=== PATIENT | male | born 1940 | race Caucasian/White ===

== ENCOUNTER 2022-08-19 14:56 | Inpatient (IN) | payer MEDICARE, OTHER ==
[2022-08-19] MEDS ORDERED: SODIUM CHLORIDE 0.9% 1,000 ML IV STA ×2 (15:08→16:16)
[2022-08-19 15:18] LABS: BASOPHILS % (AUTO) 0.1 %; HCT - HEMATOCRIT 36.7 % (42.0-52.0); HGB - HEMOGLOBIN 12.4 g/dL (14.0-18.0); LYMPHOCYTES # (AUTO) 0.5 10^3/uL (1.5-3.5); LYMPHOCYTES % (AUTO) 3.1 %; MEAN CORPUSCULAR HEMOGLOBIN 32.3 pg (27.0-31.0); MEAN CORPUSCULAR HGB CONC 33.8 g/dL (32.0-36.0); MEAN CORPUSCULAR VOLUME 95.6 fL (80.0-94.0); MEAN PLATELET VOLUME 10.2 fL (7.4-11.4); MONOCYTES # (AUTO) 0.9 10^3/uL (0.0-1.0); NEUTROPHILS # (AUTO) 14.1 10^3/uL (1.5-6.6); NEUTROPHILS % (AUTO) 90.2 %; PLT - PLATELET COUNT 136 10^3/uL (130-450); RED BLOOD COUNT 3.84 10^6/uL (4.70-6.10); RED CELL DISTRIBUTION WIDTH 13.7 % (12.0-15.0); WHITE BLOOD COUNT 15.6 x10^3/uL (4.8-10.8)
--- NOTE | 2022-08-19 15:19 | ED Physician Documentation ---
History of Present Illness - Stated complaint Stated Complaint: FOUND DOWN - Chief complaint Chief Complaint: Neuro - History obtained from History obtained from: Patient, EMS - Additonal information Additional information: Patient is an 82-year-old male who was found down outside his residence Today. He was last seen normal sometime yesterday evening. Per EMS, reportedly a neighbor/Caregiver found him laying out in the yard this morning around 9:00 and put a blanket on him. For unclear reasons they did not seek help at that time but called 911 later this afternoon.They did report that patient has an dementia history although it is not diagnosed and has been known to use alcohol.Patient Was found to be quite cold and hypothermic with blood sugar of 69. They did give an amp of D50 and believed that this helped improve some of his mentation. Patient is not able to yet give a clear history as to what has occurred. He does know his name and where he is.I am not able to locate any records [facility] system And patient has never been here before. Review of Systems Unable to obtain: Confused PD PAST MEDICAL HISTORY - Allergies Allergies/Adverse Reactions: Allergies Allergy/AdvReac Type Severity Reaction Status Date / Time Unable to Assess Allergy Verified 08/19/22 15:41 PD ED PE NORMAL - General General: Other (Disheveled, cachectic, elderly and frail-appearing, alert and oriented to person and place) - HEENT HEENT: Atraumatic, PERRL, EOMI. No: Moist mucous membranes - Neck Neck: Supple, no meningeal sign, No bony TTP - Cardiac Cardiac: RRR, Strong equal pulses - Respiratory Respiratory: No respiratory distress, Clear bilaterally - Abdomen Abdomen: Soft, Non tender, Non distended - Derm Derm: Other (Cold extremities; chillblains) - Extremities Extremities: No deformity, Other - Neuro Neuro: celery stripper 2-12 intact, No motor deficit, Normal speech. No: Alert and oriented X 3 (ANO x2) Results - Vitals Vitals: Oxygen O2 Source Room air - EKG (time done) 1618 Rate: Rate (enter#) (86) Rhythm: NSR Other comments: Other comments (Significant motion artifact) Compare to prior EKG: Old EKG unavailable - Labs Labs: Laboratory Tests 08/19/22 08/19/22 08/19/22 15:02 15:08 15:08 WBC 15.6 H RBC 3.84 L Hgb 12.4 L Hct 36.7 L MCV 95.6 H MCH 32.3 H MCHC 33.8 RDW 13.7 Plt Count 136 MPV 10.2 Neut # (Auto) 14.1 H Lymph # (Auto) 0.5 L Porter # (Auto) 0.9 Eos # (Auto) 0.0 Baso # (Auto) 0.0 Absolute Nucleated RBC 0.00 Nucleated RBC % 0.0 PT 17.1 H INR 1.6 H Sodium Potassium Chloride Carbon Dioxide Anion Gap BUN Creatinine Estimated GFR (MDRD) Glucose POC Whole Bld Glucose 141 H Lactic Acid Calcium Magnesium Total Bilirubin AST ALT Alkaline Phosphatase Total Creatine Kinase Total Protein Albumin Globulin Albumin/Globulin Ratio Lipase Urine Color Urine Clarity Urine pH Ur Specific [place] Urine Protein Urine Glucose (UA) Urine Ketones Urine Occult Blood Urine Nitrite Urine Bilirubin Urine Urobilinogen Ur Leukocyte Esterase Urine RBC Urine WBC Ur Squamous Epith Cells Urine Bacteria Urine Casts Urine Mucus Ur Microscopic Review Urine Culture Comments Urine Opiates Screen Ur Oxycodone Screen Urine Methadone Screen Ur Propoxyphene Screen Ur Barbiturates Screen Ur Tricyclics Screen Ur Phencyclidine Scrn Ur Amphetamine Screen U Methamphetamines Scrn U Benzodiazepines Scrn Urine Cocaine Screen U Cannabinoids Screen Ethyl Alcohol SARS-CoV-2 (PCR) 08/19/22 08/19/22 08/19/22 15:08 15:08 15:36 WBC RBC Hgb Hct MCV MCH MCHC RDW Plt Count MPV Neut # (Auto) Lymph # (Auto) Porter # (Auto) Eos # (Auto) Baso # (Auto) Absolute Nucleated RBC Nucleated RBC % PT INR Sodium 132 L Potassium 4.2 Chloride 97 L Carbon Dioxide 21 Anion Gap 14.0 H BUN 35 H Creatinine 0.7 Estimated GFR (MDRD) 108 Glucose 191 H POC Whole Bld Glucose Lactic Acid 3.0 H* Calcium 8.5 Magnesium 2.7 Total Bilirubin 1.8 H AST 161 H ALT 42 Alkaline Phosphatase 79 Total Creatine Kinase 7051 H* Total Protein 6.7 Albumin 3.5 Globulin 3.2 Albumin/Globulin Ratio 1.1 Lipase 20 L Urine Color Urine Clarity Urine pH Ur Specific [place] Urine Protein Urine Glucose (UA) Urine Ketones Urine Occult Blood Urine Nitrite Urine Bilirubin Urine Urobilinogen Ur Leukocyte Esterase Urine RBC Urine WBC Ur Squamous Epith Cells Urine Bacteria Urine Casts Urine Mucus Ur Microscopic Review Urine Culture Comments Urine Opiates Screen Ur Oxycodone Screen Urine Methadone Screen Ur Propoxyphene Screen Ur Barbiturates Screen Ur Tricyclics Screen Ur Phencyclidine Scrn Ur Amphetamine Screen U Methamphetamines Scrn U Benzodiazepines Scrn Urine Cocaine Screen U Cannabinoids Screen Ethyl Alcohol < 5.0 SARS-CoV-2 (PCR) NOT DETECTED 08/19/22 16:00 WBC RBC Hgb Hct MCV MCH MCHC RDW Plt Count MPV Neut # (Auto) Lymph # (Auto) Porter # (Auto) Eos # (Auto) Baso # (Auto) Absolute Nucleated RBC Nucleated RBC % PT INR Sodium Potassium Chloride Carbon Dioxide Anion Gap BUN Creatinine Estimated GFR (MDRD) Glucose POC Whole Bld Glucose Lactic Acid Calcium Magnesium Total Bilirubin AST ALT Alkaline Phosphatase Total Creatine Kinase Total Protein Albumin Globulin Albumin/Globulin Ratio Lipase Urine Color YELLOW Urine Clarity HAZY Urine pH 5.5 Ur Specific [place] >=1.030 H Urine Protein TRACE Urine Glucose (UA) 100 H Urine Ketones >=80 H Urine Occult Blood LARGE H Urine Nitrite NEGATIVE Urine Bilirubin NEGATIVE Urine Urobilinogen 0.2 (NORMAL) Ur Leukocyte Esterase NEGATIVE Urine RBC 6-10 H Urine WBC 0-3 Ur Squamous Epith Cells NONE SEEN Urine Bacteria Rare Urine Casts 0-2 Hyaline Casts Urine Mucus Moderate Strands Ur Microscopic Review INDICATED Urine Culture Comments NOT INDICATED Urine Opiates Screen NEGATIVE Ur Oxycodone Screen NEGATIVE Urine Methadone Screen NEGATIVE Ur Propoxyphene Screen NEGATIVE Ur Barbiturates Screen NEGATIVE Ur Tricyclics Screen NEGATIVE Ur Phencyclidine Scrn NEGATIVE Ur Amphetamine Screen NEGATIVE U Methamphetamines Scrn NEGATIVE U Benzodiazepines Scrn NEGATIVE Urine Cocaine Screen NEGATIVE U Cannabinoids Screen POSITIVE H Ethyl Alcohol SARS-CoV-2 (PCR) Departure - Departure Disposition: 66 [facility] DC/Xfer Clinical Impression: Hypothermia, Altered mental status Rhabdomyolysis Qualifiers: Rhabdomyolysis type: non-traumatic Qualified Code(s): M62.82 - Rhabdomyolysis Condition: Serious Discharge Date/Time: 08/19/22 18:00
--- NOTE | 2022-08-19 15:28 | XRAY Report ---
PROCEDURE: Chest 1 View X-Ray INDICATIONS: AMS TECHNIQUE: One view of the chest was acquired. COMPARISON: None. FINDINGS: Surgical changes and devices: None. Lungs and pleura: No pleural effusions or pneumothorax. Lungs are clear. Mediastinum: Mediastinal contours appear normal. Heart size is normal. Bones and chest wall: No suspicious bony lesions. Overlying soft tissues appear unremarkable. IMPRESSION: No evidence for active disease in the chest. Reviewed by: Boo Crockett MD on 08/19/2022 3:27 PM PST Approved by: Boo Crockett MD on 08/19/2022 3:27 PM [facility] Station ID: [id number]
[2022-08-19 15:31] LABS: INR 1.6 (0.8-1.2); PT - PROTHROMBIN TIME 17.1 secs (9.9-12.6)
--- NOTE | 2022-08-19 15:33 | CT Report ---
PROCEDURE: HEAD WO INDICATIONS: AMS TECHNIQUE: Noncontrast 4.5 mm thick angled axial sections acquired from the foramen magnum to the vertex. For r adiation dose reduction, the following was used: automated exposure control, adjustment of mA and/or kV according to patient size. COMPARISON: None. FINDINGS: Image quality: Excellent. CSF spaces: Basal cisterns are patent. No extra-axial fluid collections. Ventricles are normal in size and shape. Brain: Encephalomalacia and gliosis in the anterior aspect of the right superior frontal gyrus consis tent with prior infarct. There is also encephalomalacia and gliosis in the inferior left frontal lobe consistent with prior infarct. Mild global cerebral volume loss and moderate chronic microvascular i schemic changes. No acute intracranial hemorrhage. No mass effect or midline shift. No midline shift. Skull and face: Calvarium and visualized facial bones are intact, without suspicious lesions. Sinuses: Visualized sinuses and mastoids are clear. IMPRESSION: No acute intracranial finding. Remote small left and right frontal infarcts. Reviewed by: Merrick De La Rosa MD on 08/19/2022 3:31 PM PST Approved by: Merrick De La Rosa MD on 08/19/2022 3:31 PM PST Station ID: [id number]
--- NOTE | 2022-08-19 15:35 | CT Report ---
PROCEDURE: CERVICAL SPINE WO INDICATIONS: AMS; found down; unknown trauma TECHNIQUE: Noncontrast 3 mm thick sections acquired from the skull base to the T4 level. Sagittal and coronal r eformats were then constructed. For radiation dose reduction, the following was used: automated exp osure control, adjustment of mA and/or kV according to patient size. COMPARISON: None. FINDINGS: Straightening of usual cervical lordosis. No listhesis. Vertebral body heights are maintained. No fra cture, subluxation, or dislocation. Advanced degenerative changes at each level in the cervical spine . Regional soft tissues demonstrate no acute abnormality. IMPRESSION: No CT evidence of acute traumatic cervical spine injury. Reviewed by: Merrick De La Rosa MD on 08/19/2022 3:33 PM PST Approved by: Merrick De La Rosa MD on 08/19/2022 3:33 PM PST Station ID: [id number]
[2022-08-19 16:02] LABS: ALBUMIN 3.5 g/dL (3.2-5.5); ALBUMIN/GLOBULIN RATIO 1.1 (1.0-2.2); ALKALINE PHOSPHATASE 79 IU/L (42-121); ALT ALANINE AMINOTRANSFERASE 42 IU/L (10-60); AST ASPARTATE AMINOTRANSFERASE 161 IU/L (10-42); BILIRUBIN,TOTAL 1.8 mg/dL (0.2-1.0); BUN - BLOOD UREA NITROGEN 35 mg/dL (6-20); CALCIUM 8.5 mg/dL (8.5-10.3); CARBON DIOXIDE - CO2 21 mmol/L (21-32); CHLORIDE 97 mmol/L (101-111); CREATININE 0.7 mg/dL (0.6-1.2); ETOH - ETHANOL < 5.0 mg/dL; GFR - MDRD 108 (>89); GLUCOSE 191 mg/dL (70-100); LIPASE 20 U/L (22-51); MAGNESIUM 2.7 mg/dL (1.7-2.8); POTASSIUM 4.2 mmol/L (3.5-5.0); SODIUM 132 mmol/L (135-145); TOTAL PROTEIN 6.7 g/dL (6.7-8.2)
[2022-08-19 16:03] LABS: CK- CREATINE KINASE 7051 IU/L (22-269)
[2022-08-19 16:12] LABS: MUDS CUTOFF CONCENTRATIONS CUTOFF CONC BELOW:
[2022-08-19 16:17] LABS: BILIRUBIN,URINE NEGATIVE (NEGATIVE); GLUCOSE, URINE (UA) 100 mg/dL (NEGATIVE); KETONES,URINE (UA) >=80 mg/dL (NEGATIVE); LEUKOCYTE ESTERASE, URINE NEGATIVE (NEGATIVE); NITRITE,URINE NEGATIVE (NEGATIVE); OCCULT BLOOD,URINE LARGE (NEGATIVE); PH,URINE 5.5 PH (5.0-7.5); PROTEIN,URINE TRACE mg/dL (NEGATIVE); UROBILINOGEN,URINE 0.2 (NORMAL) E.U./dL (NORMAL)
[2022-08-19 16:19] LABS: CLARITY,URINE HAZY (CLEAR)
[2022-08-19 16:32] LABS: WBC,URINE 0-3 /HPF (0-3)
[2022-08-19 16:33] LABS: AMPHETAMINE SCREEN,URINE NEGATIVE (NEGATIVE); BACTERIA,URINE Rare /HPF (None Seen); BARBITURATE SCREEN,UR NEGATIVE (NEGATIVE); BENZODIAZEPINES SCREEN, URINE NEGATIVE (NEGATIVE); CASTS, URINE 0-2 Hyaline Casts /LPF; COCAINE SCREEN URINE NEGATIVE (NEGATIVE); METHADONE SCREEN, URINE NEGATIVE (NEGATIVE); METHAMPHETAMINES SCREEN, URINE NEGATIVE (NEGATIVE); MUCUS,URINE Moderate Strands; OPIATE SCREEN, URINE NEGATIVE (NEGATIVE); OXYCODONE SCREEN, URINE NEGATIVE (NEGATIVE); PROPOXYPHENE SCREEN, URINE NEGATIVE (NEGATIVE); SQUAMOUS EPITHELIAL CELL,UR NONE SEEN (<= Few); THC CANNABINOID SCREEN, URINE POSITIVE (NEGATIVE); TRICYCLIC ANTIDEPRESSANT,URINE NEGATIVE (NEGATIVE)
[2022-08-19] MEDS ORDERED: ONDANSETRON ODT 4 MG TABLET TL PRN (16:52)
[2022-08-19] MEDS ORDERED: ONDANSETRON 4 MG/2 ML VIAL IVP PRN (16:52)
[2022-08-19] MEDS ORDERED: ACETAMINOPHEN 325 MG TABLET PO PRN (16:52)
[2022-08-19] MEDS ORDERED: oxyCODONE 5 MG TABLET PO PRN (16:52)
[2022-08-19] MEDS ORDERED: LACTATED RINGERS 1,000 ML IV SCH (17:00)
--- NOTE | 2022-08-19 18:38 | HISTORY & PHYSICAL EXAMINATION ---
History and Physical - History and Physical August 19, 2022 6:38 PM Chief complaint: found down and now hypothermic History obtained from cousin and cousin's Admitted from home via EMS History of present illness: He is an 82-year-old white male who lives a chosen lifestyle of roughing it. He has limited income from Social Security and has chosen to live in a small cabin on a friend's property where there is electricity and heat but no running water in the house. If he wants to take a bath, and "peel it off after a year" he will run a spigot out in the yard. He is done well with this lifestyle because he likes to spend time outdoors, fishing, hunting, and hanging out with his cousin. He likes to smoke tobacco and weed and drink beers with his cousin. In the last couple of years, his cousin is noted that the patient is getting a little bit more forgetful and repetitive but still able to take care of himself. Judgment was still sound. He has been taking more "headers" because of loss of balance and will fall. The cousin sees the patient 2 or 3 times a week. He is always been a skinny kraig, has a poor diet, and that has not changed. The family has been starting get a little bit worried about what they were going to do about confronting him. They recognize that he is getting older, probably not a good idea to be living where he is living but nobody had any solutions to how to fix this problem. The patient's own brother is 3 years younger and has the same lifestyle and lives up in [place]. Today, the story is obtained from the cousin. He states that the landlord/friend saw him this morning. What was weird is that he was wearing shorts and that was it. His landlord/friend said "hey man, get some clothes on" and handed him a shirt and a jacket. At that time the patient was conversant b ut a little bit vague. A little bit more out of it than usual. However he did respond to his cat, stroked the cat, spoke to the cat like he normally does. They told him to get inside. And his landlord/friend went to work. Around 2 in the afternoon they came back from work and found the patient still in the same spot he was left at this morning, only this time he was laying on the ground. He may have been on the ground this entire day. That is when they called ambulance. In triage his temperature was 33.3 rectally. Blood pressure 129/105. Respirations 30. He weighed 38.55 kg and is estimated to be 5 foot 6 inches tall. He is a disheveled, bearded gentleman. Bruises and abrasions on his body. Chilblains of hands and feet. Toenails curved and long by about 2 inches. Tachypneic, but clear lungs, and a regular rate and rhythm. Nonverbal. Sodium was 132. BUN 35. Glucose 191. Lactic acid 3. Total bili 1.8. CK 7051. White cell count is 15.6. Hemoglobin 12.4. Platelets 136. INR 1.6. Urinalysis has occult blood, ketonuria, glucosuria, red cells, a small amount of white cells and 0-3. Negative leukocyte Estrace. Negative nitrates. Toxicology screen positive for cannabinoids. Ethyl alcohol less than 5. COVID- negative. Chest x-ray was without active disease. Head CT had no acute intracranial findings. He had remote small left and right frontal infarcts. C- spine CT was without acute evidence of traumatic cervical injury. I am now being asked to admit this patient for hypothermia, encephalopathy, and probable rhabdomyolysis. Past medical history: According to the cousin this patient has never been hospitalized before. He has not had any major surgeries or fractures. He has not been seen by In over 30 years. No known drug allergies No medications listed Social history: [place] in the [employer] for about 3 years. Honorable discharge. Never . Never had children. 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 Again chose to live in a cabin, and live a simple life with so security. It was a conscious choice. He liked his fishing, hunting, and hanging out with his family. He does not have a history of heroin, cocaine, LSD according to the cousin. He has been a smoker all of his life. Probably 1 to 2 packs a day. He does like to use cannabis. Beer is up to 3 to 4 cans right now. In the past he is drank more. Family history.: Did not know much about his father because his father abandoned him when the patient was 16. Mom in her 80s of a heart attack. He has a brother who lives up in [place] and as far as they know he does not have any medical issues. He has no children. Previous level of function: Does not drive. Very simple bill paying. Basically pays his landlord. Landlord brings him over food at night. But able to dress himself and feed himself up until this point. Hygiene has been poor. Review of systems unobtainable at this time. CODE STATUS: Cousin does not know what his wishes are. So by default this patient will be a full code until he is awake alert enough to communicate that Physical exam: Temperature 36.2 now, heart rate 87, blood pressure 111/62, respirations 19, 96% on room air A very disheveled, bearded, longhaired elderly gentleman, that appears gaunt and cachectic. He is twitching, eyes are closed, furrowed brow, and does occasionally mumble. Not responsive to voice or command. Head and neck does not have any contusions or lacerations. Normal facial symmetry. Oral mucosa quite dry.A crescent rim of blackheads starts at the corner of each eye and circles around along the zygomatic arch. Neck supple,Shotty adenopathy. Lungs coarse airway sounds Regular rate and rhythm Abdomen with a firm abdominal wall, no grimacing of pain with palpation, no fluid wave, no hernias Extremities are gaunt, cachectic. Skin of his shins is stretched a little tight and is red. Chilblains of fingertips and feet. Right medial malleolar skin abrasion. His shins have small abrasions. Nursing reports buttocks have small abrasions. Toenails are quite long and curved. Onychomycosis. Neurologically his cousin states that he is responding to his voice but I am not seeing it. Patient does occasionally mumble but does not respond to voice. Does respond to pain. Does withdraw feet and hands when they are touched. Assessment/plan 1. Hypothermia due to exposure. Inputting the picture together, I think this elderly gentleman has been gently failing due to chronic alcohol abuse and chronic cannabis use. Memory loss is mild but definitely present. And has been probably developing more more cerebellar ataxia. Cousin describes him falling several times this last year. He may have had 1 to many falls this morning. Tamir then saw him and asked him to go back inside and gave him a jacket. Patient did not follow through and probably fell again and laid on the ground until the afternoon. There is no evidence of [place], stroke. While he has chilblains I do not think he has frostbite.He does have an elevated white cell count, lactic acidosis. At this time I think this is strictly due to the hypothermia, fluid shifts. Urinalysis is negative. There is no pneumonia. Plan: Inpatient stay Bear hugger IV fluids for hydration 2. 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 Plan: PT eval when he is more awake and able to cooperate 3. Alcohol abuse. Banana bag. When awake and able to take p.o. switch him over to , folic acid and thiamine. INR is 1.6. Platelets are 136. So there is some element of hepatic dysfunction but not enough to have thrombocytopenia. No fluid wave on physical examination. I do not think he is encephalopathic but will check ammonia level in the morning. 4. 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 Family will have to get together and start making plans. I will also have social work start speaking to the family in the next 1 to 2 days. Adult Protective Services was notified through the ED 5. Protein calorie malnutrition seen on physical exam. But his total protein is 6.7, albumin 3.5. We will see if I can assess what his diet is once he is awake. And also see if he has had any recent weight loss. I told the cousin that once he is more awake, and able to be mobile, I will have nursing put him in the shower, sit in the chair, and get a good bath. Probably a hair trimmed. 6. Hospital issues. DVT prophylaxis with Lovenox Attestation that the patient will be evaluated for discharge within 96 hours Full CODE STATUS by default until he can let us know differently
[2022-08-19] MEDS: SODIUM CHLORIDE FLUSH 0.9% 10 ML SYRINGE IVP SCH (19:49)
[2022-08-20] MEDS: SODIUM CHLORIDE FLUSH 0.9% 10 ML SYRINGE IVP SCH ×3 (02:40→17:30)
[2022-08-20] MEDS ORDERED: SODIUM CHLORIDE 0.9% 1,000 ML IV SCH (05:00)
[2022-08-20 08:53] LABS: BASOPHILS % (AUTO) 0.2 %; HCT - HEMATOCRIT 33.7 % (42.0-52.0); HGB - HEMOGLOBIN 11.2 g/dL (14.0-18.0); LYMPHOCYTES # (AUTO) 0.3 10^3/uL (1.5-3.5); LYMPHOCYTES % (AUTO) 2.7 %; MEAN CORPUSCULAR HEMOGLOBIN 31.8 pg (27.0-31.0); MEAN CORPUSCULAR HGB CONC 33.2 g/dL (32.0-36.0); MEAN CORPUSCULAR VOLUME 95.7 fL (80.0-94.0); MEAN PLATELET VOLUME 10.9 fL (7.4-11.4); MONOCYTES # (AUTO) 0.7 10^3/uL (0.0-1.0); MONOCYTES % (AUTO) 6.4 %; NEUTROPHILS # (AUTO) 9.7 10^3/uL (1.5-6.6); NEUTROPHILS % (AUTO) 90.4 %; PLT - PLATELET COUNT 143 10^3/uL (130-450); RED BLOOD COUNT 3.52 10^6/uL (4.70-6.10); RED CELL DISTRIBUTION WIDTH 14.4 % (12.0-15.0); WHITE BLOOD COUNT 10.7 x10^3/uL (4.8-10.8)
[2022-08-20] MEDS ORDERED: MULTIVITAMIN 10 ML, THIAMINE INJ 100 MG, FOLIC ACID INJ 1 MG in SODIUM CHLORIDE 0.9% 1,... IV SCH (09:00)
[2022-08-20 09:02] LABS: ALBUMIN/GLOBULIN RATIO 1.2 (1.0-2.2); BILIRUBIN,TOTAL 1.5 mg/dL (0.2-1.0); CALCIUM 8.3 mg/dL (8.5-10.3); CREATININE 0.7 mg/dL (0.6-1.2); MAGNESIUM 2.2 mg/dL (1.7-2.8); PHOSPHORUS 2.9 mg/dL (2.5-4.6); POTASSIUM 3.9 mmol/L (3.5-5.0); TOTAL PROTEIN 5.5 g/dL (6.7-8.2)
[2022-08-20] MEDS: ENOXAPARIN 40 MG/0.4 ML SYRINGE SUBQ SCH (09:05)
--- NOTE | 2022-08-20 11:31 | PROVIDER PROGRESS NOTE ---
Subjective - Prog Note Date Prog Note Date: 08/20/22 Prog Note Time: 11:19 Current Medications - Current Medications Current Medications: Active Medications Acetaminophen (Acetaminophen 325 Mg Tablet) 650 mg PO Q4HR PRN PRN Reason: Pain 1 to 4, or Fever Enoxaparin Sodium (Enoxaparin 40 Mg/0.4 Ml Syringe) 40 mg SUBQ DAILY [facility] Last Admin: 08/20/22 09:05 Dose: 40 mg Multivitamins 10 ml/ Thiamine HCl 100 mg/ Folic Acid 1 mg/Sodium Chloride 1,011.2 mls @ 100 mls/hr IV DAILY [facility] Last Admin: 08/20/22 09:05 Dose: 100 mls/hr Sodium Chloride (Normal Saline 0.9%) 1,000 mls @ 0 mls/hr IV .Q0M [facility] Last Admin: 08/20/22 05:46 Dose: 20 mls/hr Ondansetron HCl (Ondansetron Odt 4 Mg Tablet) 4 mg TL Q6HR PRN PRN Reason: Nausea / Vomiting Ondansetron HCl (Ondansetron 4 Mg/2 Ml Vial) 4 mg IVP Q6HR PRN PRN Reason: Nausea / Vomiting Oxycodone HCl (Oxycodone 5 Mg Tablet) 5 mg PO Q4HR PRN PRN Reason: Pain 5 to 7 Sodium Chloride (Sodium Chloride Flush 0.9% 10 Ml Syringe) 10 ml IVP PRN PRN PRN Reason: NEEDED PER PROVIDER ORDERS Sodium Chloride (Sodium Chloride Flush 0.9% 10 Ml Syringe) 10 ml IVP 0100,0900,1700 [facility] Last Admin: 08/20/22 09:07 Dose: 10 ml Objective - Vital Signs/Intake & Output Vital Signs: Vital Signs x48h Temp Pulse Resp BP Pulse Ox 08/20/22 08:00 37.6 C 99 20 123/71 100 Intake & Output: Intake & Output 08/17/22 08/18/22 08/19/22 08/20/22 23:59 23:59 23:59 23:59 Intake Total 1999 Output Total 250 325 Balance 1750 -325 - Lab Results Fish Bones: 08/20/22 05:17 08/20/22 05:17 Other Labs: Lab Results x24hrs 08/20/22 08/20/22 08/20/22 Range/Units 09:08 08:53 05:17 WBC (4.8-10.8) x10^3/uL RBC (4.70-6.10) 10^6/uL Hgb (14.0-18.0) g/dL Hct (42.0-52.0) % MCV (80.0-94.0) fL MCH (27.0-31.0) pg MCHC (32.0-36.0) g/dL RDW (12.0-15.0) % Plt Count (130-450) 10^3/uL MPV (7.4-11.4) fL Neut # (Auto) (1.5-6.6) 10^3/uL Lymph # (Auto) (1.5-3.5) 10^3/uL [place] # (Auto) (0.0-1.0) 10^3/uL Eos # (Auto) (0.0-0.7) 10^3/uL Baso # (Auto) (0.0-0.1) 10^3/uL Absolute Nucleated RBC x10^3/uL Nucleated RBC % /100WBC PT (9.9-12.6) secs INR (0.8-1.2) Sodium 131 L (135-145) mmol/L Potassium 3.9 (3.5-5.0) mmol/L Chloride 101 (101-111) mmol/L Carbon Dioxide 19 L (21-32) mmol/L Anion Gap 11.0 (6-13) BUN 33 H (6-20) mg/dL Creatinine 0.7 (0.6-1.2) mg/dL Estimated GFR (MDRD) 108 (>89) Glucose 103 H (70-100) mg/dL POC Whole Bld Glucose 109 H (70 - 100) mg/dL Lactic Acid 0.9 (0.5-2.2) mmol/L Calcium 8.3 L (8.5-10.3) mg/dL Phosphorus 2.9 (2.5-4.6) mg/dL Magnesium 2.2 (1.7-2.8) mg/dL Total Bilirubin 1.5 H (0.2-1.0) mg/dL AST 147 H (10-42) IU/L ALT 41 (10-60) IU/L Alkaline Phosphatase 63 (42-121) IU/L Ammonia (7-35) umol/L Total Creatine Kinase (22-269) IU/L Total Protein 5.5 L (6.7-8.2) g/dL Albumin 3.0 L (3.2-5.5) g/dL Globulin 2.5 (2.1-4.2) g/dL Albumin/Globulin Ratio 1.2 (1.0-2.2) Lipase (22-51) U/L Urine Color Urine Clarity (CLEAR) Urine pH (5.0-7.5) PH Ur Specific Elizabeth (1.002-1.030) Urine Protein (NEGATIVE) mg/dL Urine Glucose (UA) (NEGATIVE) mg/dL Urine Ketones (NEGATIVE) mg/dL Urine Occult Blood (NEGATIVE) Urine Nitrite (NEGATIVE) Urine Bilirubin (NEGATIVE) Urine Urobilinogen (NORMAL) E.U./dL Ur Leukocyte Esterase (NEGATIVE) Urine RBC (0-5) /HPF Urine WBC (0-3) /HPF Ur Squamous Epith Cells (<= Few) Urine Bacteria (None Seen) /HPF Urine Casts /LPF Urine Mucus Ur Microscopic Review Urine Culture Comments Urine Opiates Screen (NEGATIVE) Ur Oxycodone Screen (NEGATIVE) Urine Methadone Screen (NEGATIVE) Ur Propoxyphene Screen (NEGATIVE) Ur Barbiturates Screen (NEGATIVE) Ur Tricyclics Screen (NEGATIVE) Ur Phencyclidine Scrn (NEGATIVE) Ur Amphetamine Screen (NEGATIVE) U Methamphetamines Scrn (NEGATIVE) U Benzodiazepines Scrn (NEGATIVE) Urine Cocaine Screen (NEGATIVE) U Cannabinoids Screen (NEGATIVE) Ethyl Alcohol mg/dL SARS-CoV-2 (PCR) 08/20/22 08/20/22 08/19/22 Range/Units 05:17 05:17 16:00 WBC 10.7 (4.8-10.8) x10^3/uL RBC 3.52 L (4.70-6.10) 10^6/uL Hgb 11.2 L (14.0-18.0) g/dL Hct 33.7 L (42.0-52.0) % MCV 95.7 H (80.0-94.0) fL MCH 31.8 H (27.0-31.0) pg MCHC 33.2 (32.0-36.0) g/dL RDW 14.4 (12.0-15.0) % Plt Count 143 (130-450) 10^3/uL MPV 10.9 (7.4-11.4) fL Neut # (Auto) 9.7 H (1.5-6.6) 10^3/uL Lymph # (Auto) 0.3 L (1.5-3.5) 10^3/uL [place] # (Auto) 0.7 (0.0-1.0) 10^3/uL Eos # (Auto) 0.0 (0.0-0.7) 10^3/uL Baso # (Auto) 0.0 (0.0-0.1) 10^3/uL Absolute Nucleated RBC 0.00 x10^3/uL Nucleated RBC % 0.0 /100WBC PT (9.9-12.6) secs INR (0.8-1.2) Sodium (135-145) mmol/L Potassium (3.5-5.0) mmol/L Chloride (101-111) mmol/L Carbon Dioxide (21-32) mmol/L Anion Gap (6-13) BUN (6-20) mg/dL Creatinine (0.6-1.2) mg/dL Estimated GFR (MDRD) (>89) Glucose (70-100) mg/dL POC Whole Bld Glucose (70 - 100) mg/dL Lactic Acid (0.5-2.2) mmol/L Calcium (8.5-10.3) mg/dL Phosphorus (2.5-4.6) mg/dL Magnesium (1.7-2.8) mg/dL Total Bilirubin (0.2-1.0) mg/dL AST (10-42) IU/L ALT (10-60) IU/L Alkaline Phosphatase (42-121) IU/L Ammonia 22.4 (7-35) umol/L Total Creatine Kinase (22-269) IU/L Total Protein (6.7-8.2) g/dL Albumin (3.2-5.5) g/dL Globulin (2.1-4.2) g/dL Albumin/Globulin Ratio (1.0-2.2) Lipase (22-51) U/L Urine Color YELLOW Urine Clarity HAZY (CLEAR) Urine pH 5.5 (5.0-7.5) PH Ur Specific Elizabeth >=1.030 H (1.002-1.030) Urine Protein TRACE (NEGATIVE) mg/dL Urine Glucose (UA) 100 H (NEGATIVE) mg/dL Urine Ketones >=80 H (NEGATIVE) mg/dL Urine Occult Blood LARGE H (NEGATIVE) Urine Nitrite NEGATIVE (NEGATIVE) Urine Bilirubin NEGATIVE (NEGATIVE) Urine Urobilinogen 0.2 (NORMAL) (NORMAL) E.U./dL Ur Leukocyte Esterase NEGATIVE (NEGATIVE) Urine RBC 6-10 H (0-5) /HPF Urine WBC 0-3 (0-3) /HPF Ur Squamous Epith Cells NONE SEEN (<= Few) Urine Bacteria Rare (None Seen) /HPF Urine Casts 0-2 Hyaline Casts /LPF Urine Mucus Moderate Strands Ur Microscopic Review INDICATED Urine Culture Comments NOT INDICATED Urine Opiates Screen NEGATIVE (NEGATIVE) Ur Oxycodone Screen NEGATIVE (NEGATIVE) Urine Methadone Screen NEGATIVE (NEGATIVE) Ur Propoxyphene Screen NEGATIVE (NEGATIVE) Ur Barbiturates Screen NEGATIVE (NEGATIVE) Ur Tricyclics Screen NEGATIVE (NEGATIVE) Ur Phencyclidine Scrn NEGATIVE (NEGATIVE) Ur Amphetamine Screen NEGATIVE (NEGATIVE) U Methamphetamines Scrn NEGATIVE (NEGATIVE) U Benzodiazepines Scrn NEGATIVE (NEGATIVE) Urine Cocaine Screen NEGATIVE (NEGATIVE) U Cannabinoids Screen POSITIVE H (NEGATIVE) Ethyl Alcohol mg/dL SARS-CoV-2 (PCR) 08/19/22 08/19/22 08/19/22 Range/Units 15:36 15:08 15:08 WBC (4.8-10.8) x10^3/uL RBC (4.70-6.10) 10^6/uL Hgb (14.0-18.0) g/dL Hct (42.0-52.0) % MCV (80.0-94.0) fL MCH (27.0-31.0) pg MCHC (32.0-36.0) g/dL RDW (12.0-15.0) % Plt Count (130-450) 10^3/uL MPV (7.4-11.4) fL Neut # (Auto) (1.5-6.6) 10^3/uL Lymph # (Auto) (1.5-3.5) 10^3/uL [place] # (Auto) (0.0-1.0) 10^3/uL Eos # (Auto) (0.0-0.7) 10^3/uL Baso # (Auto) (0.0-0.1) 10^3/uL Absolute Nucleated RBC x10^3/uL Nucleated RBC % /100WBC PT (9.9-12.6) secs INR (0.8-1.2) Sodium 132 L (135-145) mmol/L Potassium 4.2 (3.5-5.0) mmol/L Chloride 97 L (101-111) mmol/L Carbon Dioxide 21 (21-32) mmol/L Anion Gap 14.0 H (6-13) BUN 35 H (6-20) mg/dL Creatinine 0.7 (0.6-1.2) mg/dL Estimated GFR (MDRD) 108 (>89) Glucose 191 H (70-100) mg/dL POC Whole Bld Glucose (70 - 100) mg/dL Lactic Acid 3.0 H* (0.5-2.2) mmol/L Calcium 8.5 (8.5-10.3) mg/dL Phosphorus (2.5-4.6) mg/dL Magnesium 2.7 (1.7-2.8) mg/dL Total Bilirubin 1.8 H (0.2-1.0) mg/dL AST 161 H (10-42) IU/L ALT 42 (10-60) IU/L Alkaline Phosphatase 79 (42-121) IU/L Ammonia (7-35) umol/L Total Creatine Kinase 7051 H* (22-269) IU/L Total Protein 6.7 (6.7-8.2) g/dL Albumin 3.5 (3.2-5.5) g/dL Globulin 3.2 (2.1-4.2) g/dL Albumin/Globulin Ratio 1.1 (1.0-2.2) Lipase 20 L (22-51) U/L Urine Color Urine Clarity (CLEAR) Urine pH (5.0-7.5) PH Ur Specific Elizabeth (1.002-1.030) Urine Protein (NEGATIVE) mg/dL Urine Glucose (UA) (NEGATIVE) mg/dL Urine Ketones (NEGATIVE) mg/dL Urine Occult Blood (NEGATIVE) Urine Nitrite (NEGATIVE) Urine Bilirubin (NEGATIVE) Urine Urobilinogen (NORMAL) E.U./dL Ur Leukocyte Esterase (NEGATIVE) Urine RBC (0-5) /HPF Urine WBC (0-3) /HPF Ur Squamous Epith Cells (<= Few) Urine Bacteria (None Seen) /HPF Urine Casts /LPF Urine Mucus Ur Microscopic Review Urine Culture Comments Urine Opiates Screen (NEGATIVE) Ur Oxycodone Screen (NEGATIVE) Urine Methadone Screen (NEGATIVE) Ur Propoxyphene Screen (NEGATIVE) Ur Barbiturates Screen (NEGATIVE) Ur Tricyclics Screen (NEGATIVE) Ur Phencyclidine Scrn (NEGATIVE) Ur Amphetamine Screen (NEGATIVE) U Methamphetamines Scrn (NEGATIVE) U Benzodiazepines Scrn (NEGATIVE) Urine Cocaine Screen (NEGATIVE) U Cannabinoids Screen (NEGATIVE) Ethyl Alcohol < 5.0 mg/dL SARS-CoV-2 (PCR) NOT DETECTED 08/19/22 08/19/22 08/19/22 Range/Units 15:08 15:08 15:02 WBC 15.6 H (4.8-10.8) x10^3/uL RBC 3.84 L (4.70-6.10) 10^6/uL Hgb 12.4 L (14.0-18.0) g/dL Hct 36.7 L (42.0-52.0) % MCV 95.6 H (80.0-94.0) fL MCH 32.3 H (27.0-31.0) pg MCHC 33.8 (32.0-36.0) g/dL RDW 13.7 (12.0-15.0) % Plt Count 136 (130-450) 10^3/uL MPV 10.2 (7.4-11.4) fL Neut # (Auto) 14.1 H (1.5-6.6) 10^3/uL Lymph # (Auto) 0.5 L (1.5-3.5) 10^3/uL [place] # (Auto) 0.9 (0.0-1.0) 10^3/uL Eos # (Auto) 0.0 (0.0-0.7) 10^3/uL Baso # (Auto) 0.0 (0.0-0.1) 10^3/uL Absolute Nucleated RBC 0.00 x10^3/uL Nucleated RBC % 0.0 /100WBC PT 17.1 H (9.9-12.6) secs INR 1.6 H (0.8-1.2) Sodium (135-145) mmol/L Potassium (3.5-5.0) mmol/L Chloride (101-111) mmol/L Carbon Dioxide (21-32) mmol/L Anion Gap (6-13) BUN (6-20) mg/dL Creatinine (0.6-1.2) mg/dL Estimated GFR (MDRD) (>89) Glucose (70-100) mg/dL POC Whole Bld Glucose 141 H (70 - 100) mg/dL Lactic Acid (0.5-2.2) mmol/L Calcium (8.5-10.3) mg/dL Phosphorus (2.5-4.6) mg/dL Magnesium (1.7-2.8) mg/dL Total Bilirubin (0.2-1.0) mg/dL AST (10-42) IU/L ALT (10-60) IU/L Alkaline Phosphatase (42-121) IU/L Ammonia (7-35) umol/L Total Creatine Kinase (22-269) IU/L Total Protein (6.7-8.2) g/dL Albumin (3.2-5.5) g/dL Globulin (2.1-4.2) g/dL Albumin/Globulin Ratio (1.0-2.2) Lipase (22-51) U/L Urine Color Urine Clarity (CLEAR) Urine pH (5.0-7.5) PH Ur Specific Elizabeth (1.002-1.030) Urine Protein (NEGATIVE) mg/dL Urine Glucose (UA) (NEGATIVE) mg/dL Urine Ketones (NEGATIVE) mg/dL Urine Occult Blood (NEGATIVE) Urine Nitrite (NEGATIVE) Urine Bilirubin (NEGATIVE) Urine Urobilinogen (NORMAL) E.U./dL Ur Leukocyte Esterase (NEGATIVE) Urine RBC (0-5) /HPF Urine WBC (0-3) /HPF Ur Squamous Epith Cells (<= Few) Urine Bacteria (None Seen) /HPF Urine Casts /LPF Urine Mucus Ur Microscopic Review Urine Culture Comments Urine Opiates Screen (NEGATIVE) Ur Oxycodone Screen (NEGATIVE) Urine Methadone Screen (NEGATIVE) Ur Propoxyphene Screen (NEGATIVE) Ur Barbiturates Screen (NEGATIVE) Ur Tricyclics Screen (NEGATIVE) Ur Phencyclidine Scrn (NEGATIVE) Ur Amphetamine Screen (NEGATIVE) U Methamphetamines Scrn (NEGATIVE) U Benzodiazepines Scrn (NEGATIVE) Urine Cocaine Screen (NEGATIVE) U Cannabinoids Screen (NEGATIVE) Ethyl Alcohol mg/dL SARS-CoV-2 (PCR)
--- NOTE | 2022-08-20 12:21 | PROVIDER PROGRESS NOTE ---
Subjective - Prog Note Date Prog Note Date: 08/20/22 Prog Note Time: 12:19 - Subjective Subjective: His vitals have now normalized overnight. Oxygen, temperature, blood pressure and pulse are all normal. Nevertheless he still asleep. Does respond to marilyn nful stimuli and voice with eyelid flutter but no overt verbalization This morning. But by afternoon he is starting the answer questions yes no. Ate a few bites of food. Current Medications - Current Medications Current Medications: Active Medications Acetaminophen (Acetaminophen 325 Mg Tablet) 650 mg PO Q4HR PRN PRN Reason: Pain 1 to 4, or Fever Enoxaparin Sodium (Enoxaparin 40 Mg/0.4 Ml Syringe) 40 mg SUBQ DAILY [facility] Last Admin: 08/20/22 09:05 Dose: 40 mg Multivitamins 10 ml/ Thiamine HCl 100 mg/ Folic Acid 1 mg/Sodium Chloride 1,011.2 mls @ 100 mls/hr IV DAILY [facility] Last Admin: 08/20/22 09:05 Dose: 100 mls/hr Sodium Chloride (Normal Saline 0.9%) 1,000 mls @ 0 mls/hr IV .Q0M [facility] Last Admin: 08/20/22 05:46 Dose: 20 mls/hr Ondansetron HCl (Ondansetron Odt 4 Mg Tablet) 4 mg TL Q6HR PRN PRN Reason: Nausea / Vomiting Ondansetron HCl (Ondansetron 4 Mg/2 Ml Vial) 4 mg IVP Q6HR PRN PRN Reason: Nausea / Vomiting Oxycodone HCl (Oxycodone 5 Mg Tablet) 5 mg PO Q4HR PRN PRN Reason: Pain 5 to 7 Multivit/Folic Acid/Iron ( Vitamin Tablet) 1 tab PO DAILYWM [facility] Sodium Chloride (Sodium Chloride Flush 0.9% 10 Ml Syringe) 10 ml IVP PRN PRN PRN Reason: NEEDED PER PROVIDER ORDERS Sodium Chloride (Sodium Chloride Flush 0.9% 10 Ml Syringe) 10 ml IVP 0100,0900,1700 [facility] Last Admin: 08/20/22 09:07 Dose: 10 ml Objective - Vital Signs/Intake & Output Reviewed Vital Signs: Yes Vital Signs: Vital Signs x48h Temp Pulse Resp BP Pulse Ox 08/20/22 08:00 37.6 C 99 20 123/71 100 Intake & Output: Intake & Output 08/17/22 08/18/22 08/19/22 08/20/22 23:59 23:59 23:59 23:59 Intake Total 1999 Output Total 250 325 Balance 1750 -325 - Objective Eyes Bilateral: positive: PERRL (Small), EOMI ENT: positive: Dry mucous membranes (Tip of tongue also quite dry) Neck: positive: No JVD, Lymphadenopathy (R) (Shotty), Lymphadenopathy (L) (Shotty) Respiratory: positive: No respiratory distress. negative: Wheezes, Rales, Rhonchi Cardiovascular: positive: Regular rate & rhythm Abdomen: positive: Non-tender, No organomegaly, Nml bowel sounds, No distention Skin: positive: Warm, Dry, Other (The discoloration of fingers and feet have improved as his body temperature has come up. No more chilblains. The medial malleoli of both ankles are quite prominent. The right 1 has loss of skin. That was present on admission. Multiple excoriations on his shins, forearms. None of them are infec) Extremities: positive: Full ROM, No pedal edema Neurologic/Psychiatric: positive: Other (Laying on his back. Appears comfortable. Still has slightly wrinkled brow. Response to pain. Nonverbal. Spontaneously moving all extremities in his sleep.) - Lab Results Fish Bones: 08/20/22 05:17 08/20/22 05:17 Other Labs: Lab Results x24hrs 08/20/22 08/20/22 08/20/22 Range/Units 09:08 08:53 05:17 WBC (4.8-10.8) x10^3/uL RBC (4.70-6.10) 10^6/uL Hgb (14.0-18.0) g/dL Hct (42.0-52.0) % MCV (80.0-94.0) fL MCH (27.0-31.0) pg MCHC (32.0-36.0) g/dL RDW (12.0-15.0) % Plt Count (130-450) 10^3/uL MPV (7.4-11.4) fL Neut # (Auto) (1.5-6.6) 10^3/uL Lymph # (Auto) (1.5-3.5) 10^3/uL [place] # (Auto) (0.0-1.0) 10^3/uL Eos # (Auto) (0.0-0.7) 10^3/uL Baso # (Auto) (0.0-0.1) 10^3/uL Absolute Nucleated RBC x10^3/uL Nucleated RBC % /100WBC PT (9.9-12.6) secs INR (0.8-1.2) Sodium 131 L (135-145) mmol/L Potassium 3.9 (3.5-5.0) mmol/L Chloride 101 (101-111) mmol/L Carbon Dioxide 19 L (21-32) mmol/L Anion Gap 11.0 (6-13) BUN 33 H (6-20) mg/dL Creatinine 0.7 (0.6-1.2) mg/dL Estimated GFR (MDRD) 108 (>89) Glucose 103 H (70-100) mg/dL POC Whole Bld Glucose 109 H (70 - 100) mg/dL Lactic Acid 0.9 (0.5-2.2) mmol/L Calcium 8.3 L (8.5-10.3) mg/dL Phosphorus 2.9 (2.5-4.6) mg/dL Magnesium 2.2 (1.7-2.8) mg/dL Total Bilirubin 1.5 H (0.2-1.0) mg/dL AST 147 H (10-42) IU/L ALT 41 (10-60) IU/L Alkaline Phosphatase 63 (42-121) IU/L Ammonia (7-35) umol/L Total Creatine Kinase (22-269) IU/L Total Protein 5.5 L (6.7-8.2) g/dL Albumin 3.0 L (3.2-5.5) g/dL Globulin 2.5 (2.1-4.2) g/dL Albumin/Globulin Ratio 1.2 (1.0-2.2) Lipase (22-51) U/L Urine Color Urine Clarity (CLEAR) Urine pH (5.0-7.5) PH Ur Specific [place] (1.002-1.030) Urine Protein (NEGATIVE) mg/dL Urine Glucose (UA) (NEGATIVE) mg/dL Urine Ketones (NEGATIVE) mg/dL Urine Occult Blood (NEGATIVE) Urine Nitrite (NEGATIVE) Urine Bilirubin (NEGATIVE) Urine Urobilinogen (NORMAL) E.U./dL Ur Leukocyte Esterase (NEGATIVE) Urine RBC (0-5) /HPF Urine WBC (0-3) /HPF Ur Squamous Epith Cells (<= Few) Urine Bacteria (None Seen) /HPF Urine Casts /LPF Urine Mucus Ur Microscopic Review Urine Culture Comments Urine Opiates Screen (NEGATIVE) Ur Oxycodone Screen (NEGATIVE) Urine Methadone Screen (NEGATIVE) Ur Propoxyphene Screen (NEGATIVE) Ur Barbiturates Screen (NEGATIVE) Ur Tricyclics Screen (NEGATIVE) Ur Phencyclidine Scrn (NEGATIVE) Ur Amphetamine Screen (NEGATIVE) U Methamphetamines Scrn (NEGATIVE) U Benzodiazepines Scrn (NEGATIVE) Urine Cocaine Screen (NEGATIVE) U Cannabinoids Screen (NEGATIVE) Ethyl Alcohol mg/dL SARS-CoV-2 (PCR) 08/20/22 08/20/22 08/19/22 Range/Units 05:17 05:17 16:00 WBC 10.7 (4.8-10.8) x10^3/uL RBC 3.52 L (4.70-6.10) 10^6/uL Hgb 11.2 L (14.0-18.0) g/dL Hct 33.7 L (42.0-52.0) % MCV 95.7 H (80.0-94.0) fL MCH 31.8 H (27.0-31.0) pg MCHC 33.2 (32.0-36.0) g/dL RDW 14.4 (12.0-15.0) % Plt Count 143 (130-450) 10^3/uL MPV 10.9 (7.4-11.4) fL Neut # (Auto) 9.7 H (1.5-6.6) 10^3/uL Lymph # (Auto) 0.3 L (1.5-3.5) 10^3/uL [place] # (Auto) 0.7 (0.0-1.0) 10^3/uL Eos # (Auto) 0.0 (0.0-0.7) 10^3/uL Baso # (Auto) 0.0 (0.0-0.1) 10^3/uL Absolute Nucleated RBC 0.00 x10^3/uL Nucleated RBC % 0.0 /100WBC PT (9.9-12.6) secs INR (0.8-1.2) Sodium (135-145) mmol/L Potassium (3.5-5.0) mmol/L Chloride (101-111) mmol/L Carbon Dioxide (21-32) mmol/L Anion Gap (6-13) BUN (6-20) mg/dL Creatinine (0.6-1.2) mg/dL Estimated GFR (MDRD) (>89) Glucose (70-100) mg/dL POC Whole Bld Glucose (70 - 100) mg/dL Lactic Acid (0.5-2.2) mmol/L Calcium (8.5-10.3) mg/dL Phosphorus (2.5-4.6) mg/dL Magnesium (1.7-2.8) mg/dL Total Bilirubin (0.2-1.0) mg/dL AST (10-42) IU/L ALT (10-60) IU/L Alkaline Phosphatase (42-121) IU/L Ammonia 22.4 (7-35) umol/L Total Creatine Kinase (22-269) IU/L Total Protein (6.7-8.2) g/dL Albumin (3.2-5.5) g/dL Globulin (2.1-4.2) g/dL Albumin/Globulin Ratio (1.0-2.2) Lipase (22-51) U/L Urine Color YELLOW Urine Clarity HAZY (CLEAR) Urine pH 5.5 (5.0-7.5) PH Ur Specific [place] >=1.030 H (1.002-1.030) Urine Protein TRACE (NEGATIVE) mg/dL Urine Glucose (UA) 100 H (NEGATIVE) mg/dL Urine Ketones >=80 H (NEGATIVE) mg/dL Urine Occult Blood LARGE H (NEGATIVE) Urine Nitrite NEGATIVE (NEGATIVE) Urine Bilirubin NEGATIVE (NEGATIVE) Urine Urobilinogen 0.2 (NORMAL) (NORMAL) E.U./dL Ur Leukocyte Esterase NEGATIVE (NEGATIVE) Urine RBC 6-10 H (0-5) /HPF Urine WBC 0-3 (0-3) /HPF Ur Squamous Epith Cells NONE SEEN (<= Few) Urine Bacteria Rare (None Seen) /HPF Urine Casts 0-2 Hyaline Casts /LPF Urine Mucus Moderate Strands Ur Microscopic Review INDICATED Urine Culture Comments NOT INDICATED Urine Opiates Screen NEGATIVE (NEGATIVE) Ur Oxycodone Screen NEGATIVE (NEGATIVE) Urine Methadone Screen NEGATIVE (NEGATIVE) Ur Propoxyphene Screen NEGATIVE (NEGATIVE) Ur Barbiturates Screen NEGATIVE (NEGATIVE) Ur Tricyclics Screen NEGATIVE (NEGATIVE) Ur Phencyclidine Scrn NEGATIVE (NEGATIVE) Ur Amphetamine Screen NEGATIVE (NEGATIVE) U Methamphetamines Scrn NEGATIVE (NEGATIVE) U Benzodiazepines Scrn NEGATIVE (NEGATIVE) Urine Cocaine Screen NEGATIVE (NEGATIVE) U Cannabinoids Screen POSITIVE H (NEGATIVE) Ethyl Alcohol mg/dL SARS-CoV-2 (PCR) 08/19/22 08/19/22 08/19/22 Range/Units 15:36 15:08 15:08 WBC (4.8-10.8) x10^3/uL RBC (4.70-6.10) 10^6/uL Hgb (14.0-18.0) g/dL Hct (42.0-52.0) % MCV (80.0-94.0) fL MCH (27.0-31.0) pg MCHC (32.0-36.0) g/dL RDW (12.0-15.0) % Plt Count (130-450) 10^3/uL MPV (7.4-11.4) fL Neut # (Auto) (1.5-6.6) 10^3/uL Lymph # (Auto) (1.5-3.5) 10^3/uL [place] # (Auto) (0.0-1.0) 10^3/uL Eos # (Auto) (0.0-0.7) 10^3/uL Baso # (Auto) (0.0-0.1) 10^3/uL Absolute Nucleated RBC x10^3/uL Nucleated RBC % /100WBC PT (9.9-12.6) secs INR (0.8-1.2) Sodium 132 L (135-145) mmol/L Potassium 4.2 (3.5-5.0) mmol/L Chloride 97 L (101-111) mmol/L Carbon Dioxide 21 (21-32) mmol/L Anion Gap 14.0 H (6-13) BUN 35 H (6-20) mg/dL Creatinine 0.7 (0.6-1.2) mg/dL Estimated GFR (MDRD) 108 (>89) Glucose 191 H (70-100) mg/dL POC Whole Bld Glucose (70 - 100) mg/dL Lactic Acid 3.0 H* (0.5-2.2) mmol/L Calcium 8.5 (8.5-10.3) mg/dL Phosphorus (2.5-4.6) mg/dL Magnesium 2.7 (1.7-2.8) mg/dL Total Bilirubin 1.8 H (0.2-1.0) mg/dL AST 161 H (10-42) IU/L ALT 42 (10-60) IU/L Alkaline Phosphatase 79 (42-121) IU/L Ammonia (7-35) umol/L Total Creatine Kinase 7051 H* (22-269) IU/L Total Protein 6.7 (6.7-8.2) g/dL Albumin 3.5 (3.2-5.5) g/dL Globulin 3.2 (2.1-4.2) g/dL Albumin/Globulin Ratio 1.1 (1.0-2.2) Lipase 20 L (22-51) U/L Urine Color Urine Clarity (CLEAR) Urine pH (5.0-7.5) PH Ur Specific [place] (1.002-1.030) Urine Protein (NEGATIVE) mg/dL Urine Glucose (UA) (NEGATIVE) mg/dL Urine Ketones (NEGATIVE) mg/dL Urine Occult Blood (NEGATIVE) Urine Nitrite (NEGATIVE) Urine Bilirubin (NEGATIVE) Urine Urobilinogen (NORMAL) E.U./dL Ur Leukocyte Esterase (NEGATIVE) Urine RBC (0-5) /HPF Urine WBC (0-3) /HPF Ur Squamous Epith Cells (<= Few) Urine Bacteria (None Seen) /HPF Urine Casts /LPF Urine Mucus Ur Microscopic Review Urine Culture Comments Urine Opiates Screen (NEGATIVE) Ur Oxycodone Screen (NEGATIVE) Urine Methadone Screen (NEGATIVE) Ur Propoxyphene Screen (NEGATIVE) Ur Barbiturates Screen (NEGATIVE) Ur Tricyclics Screen (NEGATIVE) Ur Phencyclidine Scrn (NEGATIVE) Ur Amphetamine Screen (NEGATIVE) U Methamphetamines Scrn (NEGATIVE) U Benzodiazepines Scrn (NEGATIVE) Urine Cocaine Screen (NEGATIVE) U Cannabinoids Screen (NEGATIVE) Ethyl Alcohol < 5.0 mg/dL SARS-CoV-2 (PCR) NOT DETECTED 08/19/22 08/19/22 08/19/22 Range/Units 15:08 15:08 15:02 WBC 15.6 H (4.8-10.8) x10^3/uL RBC 3.84 L (4.70-6.10) 10^6/uL Hgb 12.4 L (14.0-18.0) g/dL Hct 36.7 L (42.0-52.0) % MCV 95.6 H (80.0-94.0) fL MCH 32.3 H (27.0-31.0) pg MCHC 33.8 (32.0-36.0) g/dL RDW 13.7 (12.0-15.0) % Plt Count 136 (130-450) 10^3/uL MPV 10.2 (7.4-11.4) fL Neut # (Auto) 14.1 H (1.5-6.6) 10^3/uL Lymph # (Auto) 0.5 L (1.5-3.5) 10^3/uL [place] # (Auto) 0.9 (0.0-1.0) 10^3/uL Eos # (Auto) 0.0 (0.0-0.7) 10^3/uL Baso # (Auto) 0.0 (0.0-0.1) 10^3/uL Absolute Nucleated RBC 0.00 x10^3/uL Nucleated RBC % 0.0 /100WBC PT 17.1 H (9.9-12.6) secs INR 1.6 H (0.8-1.2) Sodium (135-145) mmol/L Potassium (3.5-5.0) mmol/L Chloride (101-111) mmol/L Carbon Dioxide (21-32) mmol/L Anion Gap (6-13) BUN (6-20) mg/dL Creatinine (0.6-1.2) mg/dL Estimated GFR (MDRD) (>89) Glucose (70-100) mg/dL POC Whole Bld Glucose 141 H (70 - 100) mg/dL Lactic Acid (0.5-2.2) mmol/L Calcium (8.5-10.3) mg/dL Phosphorus (2.5-4.6) mg/dL Magnesium (1.7-2.8) mg/dL Total Bilirubin (0.2-1.0) mg/dL AST (10-42) IU/L ALT (10-60) IU/L Alkaline Phosphatase (42-121) IU/L Ammonia (7-35) umol/L Total Creatine Kinase (22-269) IU/L Total Protein (6.7-8.2) g/dL Albumin (3.2-5.5) g/dL Globulin (2.1-4.2) g/dL Albumin/Globulin Ratio (1.0-2.2) Lipase (22-51) U/L Urine Color Urine Clarity (CLEAR) Urine pH (5.0-7.5) PH Ur Specific [place] (1.002-1.030) Urine Protein (NEGATIVE) mg/dL Urine Glucose (UA) (NEGATIVE) mg/dL Urine Ketones (NEGATIVE) mg/dL Urine Occult Blood (NEGATIVE) Urine Nitrite (NEGATIVE) Urine Bilirubin (NEGATIVE) Urine Urobilinogen (NORMAL) E.U./dL Ur Leukocyte Esterase (NEGATIVE) Urine RBC (0-5) /HPF Urine WBC (0-3) /HPF Ur Squamous Epith Cells (<= Few) Urine Bacteria (None Seen) /HPF Urine Casts /LPF Urine Mucus Ur Microscopic Review Urine Culture Comments Urine Opiates Screen (NEGATIVE) Ur Oxycodone Screen (NEGATIVE) Urine Methadone Screen (NEGATIVE) Ur Propoxyphene Screen (NEGATIVE) Ur Barbiturates Screen (NEGATIVE) Ur Tricyclics Screen (NEGATIVE) Ur Phencyclidine Scrn (NEGATIVE) Ur Amphetamine Screen (NEGATIVE) U Methamphetamines Scrn (NEGATIVE) U Benzodiazepines Scrn (NEGATIVE) Urine Cocaine Screen (NEGATIVE) U Cannabinoids Screen (NEGATIVE) Ethyl Alcohol mg/dL SARS-CoV-2 (PCR) Assessment/Plan - Problem List (1) Hypothermia due to exposure Impression: Overall I think this elderly gentleman has been failing due to aging in place, chronic alcohol abuse, chronic cannabis abuse, and probable mild malnutrition. There is a description by his cousin of gentle memory loss, and falls. I think he fell, did not get himself back in the house in time, and ended up having exposure and hypothermia. Differential diagnosis of stroke, heart attack, sepsis, hepatic liver disease with ammonia, uremia, infection have all been entertained and ruled out. Plan: We can stop the bear hugger Continue IV fluids for hydration since not waking up yet (2) Cerebellar ataxia Impression: Described by his cousin on admission. History of falls over this last year or 2. May be due to old strokes as seen on CT, or combination of strokes and chronic alcohol abuse. Plan: When more awake, PT evaluation and treatment (3) Alcohol abuse Impression: On a banana bag. When he is taking p.o. we will switch him over to vitamin and thiamine p.o. We will watch for signs and symptoms of alcohol withdrawal. Currently none present. 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 Repeating things. Forgetting things. But not forgetting to eat or meet up with people when necessary. We are still waiting for him to wake up. He currently does not have a power of trade mark attorney. Patient registration working with this patient and his family to get him registered with Medicaid. Adult Protective Services already notified through the ED. Once he is more awake and lucid, he and his family can make plans with social work (5) Severe protein-calorie malnutrition Impression: There is no way for me to quantify if he is lost weight in the last week or last few months. On physical exam he has severe loss of lean body mass. BMI is 13. Protein and albumin are normal however. Nutrition services involved and will be supplementing. We will watch for refeeding syndrome (6) Rhabdomyolysis Impression: At this time I think he just lay on the ground for a few hours and resulted in the rhabdomyolysis. It has not resulted in acute kidney injury. We will continue to hydrate with banana bag and then IV fluids until he is awake. Qualifiers: Rhabdomyolysis type: non-traumatic Qualified Code(s): M62.82 - Rhabd omyolysis (7) Leukocytosis Impression: No evidence of pneumonia, UTI, or acute abdominal process. He does not have a left shift. My suspicion is demargination. Will continue to monitor for signs and symptoms of infection and treat at that time. Will follow white cell count Qualifiers: Leukocytosis type: leukemoid reaction Qualified Code(s): D72.823 - Leukemoid reaction
[2022-08-21] MEDS: SODIUM CHLORIDE FLUSH 0.9% 10 ML SYRINGE IVP SCH ×3 (01:06→17:10)
[2022-08-21 05:36] LABS: HCT - HEMATOCRIT 32.9 % (42.0-52.0); HGB - HEMOGLOBIN 11.1 g/dL (14.0-18.0); LYMPHOCYTES # (AUTO) 0.5 10^3/uL (1.5-3.5); LYMPHOCYTES % (AUTO) 7.6 %; MEAN CORPUSCULAR HEMOGLOBIN 32.1 pg (27.0-31.0); MEAN CORPUSCULAR HGB CONC 33.7 g/dL (32.0-36.0); MEAN CORPUSCULAR VOLUME 95.1 fL (80.0-94.0); MEAN PLATELET VOLUME 10.2 fL (7.4-11.4); MONOCYTES # (AUTO) 0.6 10^3/uL (0.0-1.0); MONOCYTES % (AUTO) 8.3 %; NEUTROPHILS # (AUTO) 5.9 10^3/uL (1.5-6.6); NEUTROPHILS % (AUTO) 83.8 %; PLT - PLATELET COUNT 127 10^3/uL (130-450); RED BLOOD COUNT 3.46 10^6/uL (4.70-6.10); RED CELL DISTRIBUTION WIDTH 14.7 % (12.0-15.0)
[2022-08-21 05:46] LABS: ALBUMIN 2.6 g/dL (3.2-5.5); ALBUMIN/GLOBULIN RATIO 0.8 (1.0-2.2); BILIRUBIN,TOTAL 1.2 mg/dL (0.2-1.0); CALCIUM 8.2 mg/dL (8.5-10.3); CREATININE 0.5 mg/dL (0.6-1.2); MAGNESIUM 2.2 mg/dL (1.7-2.8); PHOSPHORUS 1.3 mg/dL (2.5-4.6); POTASSIUM 3.5 mmol/L (3.5-5.0); TOTAL PROTEIN 5.8 g/dL (6.7-8.2)
[2022-08-21] MEDS: ENOXAPARIN 40 MG/0.4 ML SYRINGE SUBQ SCH (08:44)
[2022-08-21] MEDS: THIAMINE 100 MG TABLET PO SCH (09:14)
[2022-08-21] MEDS: PRENATAL VITAMIN TABLET PO SCH ×2 (15:00→15:11)
[2022-08-21] MEDS: NEUTRA-PHOS 250 MG TABLET PO SCH ×3 (15:01→17:10)
--- NOTE | 2022-08-21 16:03 | PROVIDER PROGRESS NOTE ---
Progress Note August 21, 2022 3:55 PM His cousin Mic and Mic significant other Simón is at the bedside. Updated on his condition. The patient has been awake since yesterday afternoon. Talkative, loquacious. Laughing and telling stories but sometimes has garbled speech. Very weak. Cannot sit up in bed on his own. Social work is working with him to get appropriate paperwork done for Medicaid. His cousin Mic thinks that he may need long-term placement if he does not recover from this. Active Medications Acetaminophen (Acetaminophen 325 Mg Tablet) 650 mg PO Q4HR PRN PRN Reason: Pain 1 to 4, or Fever Enoxaparin Sodium (Enoxaparin 40 Mg/0.4 Ml Syringe) 40 mg SUBQ DAILY [facility] Last Admin: 08/21/22 08:44 Dose: 40 mg Sodium Chloride (Normal Saline 0.9%) 1,000 mls @ 0 mls/hr IV .Q0M [facility] Last Admin: 08/20/22 05:46 Dose: 20 mls/hr Ondansetron HCl (Ondansetron Odt 4 Mg Tablet) 4 mg TL Q6HR PRN PRN Reason: Nausea / Vomiting Ondansetron HCl (Ondansetron 4 Mg/2 Ml Vial) 4 mg IVP Q6HR PRN PRN Reason: Nausea / Vomiting Oxycodone HCl (Oxycodone 5 Mg Tablet) 5 mg PO Q4HR PRN PRN Reason: Pain 5 to 7 Multivit/Folic Acid/Iron ( Vitamin Tablet) 1 tab PO DAILYWM [facility] Last Admin: 08/21/22 15:11 Dose: 1 tab Sodium Chloride (Sodium Chloride Flush 0.9% 10 Ml Syringe) 10 ml IVP PRN PRN PRN Reason: NEEDED PER PROVIDER ORDERS Sodium Chloride (Sodium Chloride Flush 0.9% 10 Ml Syringe) 10 ml IVP 0100,0900,1700 [facility] Last Admin: 08/21/22 08:44 Dose: 10 ml Sodium Phosphate (Neutra-Phos 250 Mg Tablet) 250 mg PO TIDWM [facility] Last Admin: 08/21/22 15:13 Dose: 250 mg Thiamine HCl (Thiamine 100 Mg Tablet) 100 mg PO DAILY [facility] Last Admin: 08/21/22 09:14 Dose: 100 mg No Known Home Medications 08/21/22 Temperature is 37.4. Heart rate 84. Blood pressure 114/77. Respirations 20. 94% on room air. An alert, oriented, disheveled elderly male, long tangled cedeño, long tangled hair, partially edentulous. Slapped cheek red cheeks. Neck is supple Lungs are clear to auscultation and percussion at the bases. However in the mid lungs and upper lobes he has coarse gurgling phlegm sounds. He does cough occasionally but he is not bringing up that phlegm. No respiratory distress with this. Regular rate and rhythm without murmurs rubs or gallops Abdomen is soft, nontender. Normal bowel sounds. He is eating bites of his food or 25% of his tray. Extremities have ceased having the red chilblains of hands and feet. Multiple healing excoriations, abrasions on legs, hands, and back. No clubbing cyanosis. No edema. Very long curved toenails with onychomycosis. CMP shows a BUN of 23, creatinine 0.5. Random glucose 122. Lactic acid 0.9. Calcium is 8.2. Phosphorus 1.3. Magnesium 2.2. Total bili 1.2. Protein 5.8, albumin 2.6. CBC. White cell count continues to drop. He was admitted at 15.6, was 10.7 and now 7.0. Hemoglobin slightly dropped. 12.4 on admission 11.1 today. Platelets slightly low at 127. Assessment/plan 1. Hypothermia due to exposure. Resolved. He really does not have any memory of that day. Cannot remember why he ended up laying on the ground. But temperatures been normal for 24 hours. 2. Cognitive deficits due to old cerebral infarctions, alcohol abuse and aging Filling out paperwork with social work to get him more benefits. Mic, his cousin, is supportive of this. Encourages him to get the paperwork done. We will have occupational therapy work with him when they are available on August 23 3. Alcohol abuse. No signs and symptoms of withdrawal. Has received a banana bag. I will switch him over to p.o. vitamins. 4. 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 Has had falls in the last year. I am having physical therapy work with him but he is so weak and muscles hurt so much he could not do much more than sit up on the side of the bed. We will continue to have PT work with him. 5. Severe protein calorie malnutrition Seen on physical exam. Documented with low protein status. Nutrition services is working with him. Eating very little. 6. Rhabdomyolysis, nontraumatic His initial CPK was 7051. I have not been really concerned since his creatinine was normal. We will recheck to trend it tomorrow. 7. Leukocytosis., Resolved My suspicion is that of demargination from the exposure and rhabdomyolysis. No evidence of infection on exam. No signs and symptoms of infection.
[2022-08-22 05:55] LABS: HCT - HEMATOCRIT 31.2 % (42.0-52.0); HGB - HEMOGLOBIN 10.5 g/dL (14.0-18.0); LYMPHOCYTES # (AUTO) 0.7 10^3/uL (1.5-3.5); LYMPHOCYTES % (AUTO) 9.3 %; MEAN CORPUSCULAR HEMOGLOBIN 32.1 pg (27.0-31.0); MEAN CORPUSCULAR HGB CONC 33.7 g/dL (32.0-36.0); MEAN CORPUSCULAR VOLUME 95.4 fL (80.0-94.0); MEAN PLATELET VOLUME 10.6 fL (7.4-11.4); MONOCYTES # (AUTO) 0.7 10^3/uL (0.0-1.0); MONOCYTES % (AUTO) 9.1 %; NEUTROPHILS # (AUTO) 6.3 10^3/uL (1.5-6.6); NEUTROPHILS % (AUTO) 81.2 %; PLT - PLATELET COUNT 123 10^3/uL (130-450); RED BLOOD COUNT 3.27 10^6/uL (4.70-6.10); RED CELL DISTRIBUTION WIDTH 14.6 % (12.0-15.0); WHITE BLOOD COUNT 7.7 x10^3/uL (4.8-10.8)
[2022-08-22 06:13] LABS: ALBUMIN 2.7 g/dL (3.2-5.5); ALBUMIN/GLOBULIN RATIO 0.9 (1.0-2.2); BILIRUBIN,TOTAL 1.7 mg/dL (0.2-1.0); CALCIUM 8.1 mg/dL (8.5-10.3); CREATININE 0.5 mg/dL (0.6-1.2); POTASSIUM 3.4 mmol/L (3.5-5.0); TOTAL PROTEIN 5.6 g/dL (6.7-8.2)
[2022-08-22] MEDS: PRENATAL VITAMIN TABLET PO SCH (08:58)
[2022-08-22] MEDS: THIAMINE 100 MG TABLET PO SCH (08:58)
[2022-08-22] MEDS: NEUTRA-PHOS 250 MG TABLET PO SCH ×3 (08:58→17:05)
[2022-08-22] MEDS: SODIUM CHLORIDE FLUSH 0.9% 10 ML SYRINGE IVP SCH ×2 (08:58→17:07)
[2022-08-22] MEDS: ENOXAPARIN 40 MG/0.4 ML SYRINGE SUBQ SCH (08:58)
--- NOTE | 2022-08-22 11:24 | PHARMACY PROGRESS NOTE ---
- Best Possible Medication History Admit Date and Time: 08/19/22 7988 Processed by: Pharmacy Medication History completed: Yes Patient Interview: Pt unable to participate As the person ultimately responsible for medication therapy, providers are able to order a medication from an existing home medication list in [facility] via the "Reconcile Routine" prior to Confirmation of that medication by production support consultant. Such practice is discouraged except when the physician, in their clinical judgment, deems that a medical need exists for a medication without regard to previous use.
[2022-08-22] MEDS ORDERED: BEER 355 ML BOTTLE PO PRN (14:29)
[2022-08-22] MEDS: NICOTINE 14 MG PATCH TOP SCH (14:40)
--- NOTE | 2022-08-22 15:22 | PROVIDER PROGRESS NOTE ---
Progress Note August 22, 2022 3:23 PM Delightful, loquacious, quirky elderly gentleman. The aide has been able to wash his cedeño, wash his hair, at least wipe off his face and his armpits. Everything had a lot of dirt and the wipes came away brown. The whole time he was cursing at the aide and laughing at him. He aches quite a bit. Can barely sit up. Today we do not have physical therapy in the hospital. Denies shortness of breath, has a chronic daily cough from phlegm. He is anchoring for his cigarettes and his beer. Ask if he could have them here. No abdominal pain. No pain with urination. Active Medications Acetaminophen (Acetaminophen 325 Mg Tablet) 650 mg PO Q4HR PRN PRN Reason: Pain 1 to 4, or Fever Beer (Beer 355 Ml Bottle) 355 ml PO TIDWM PRN PRN Reason: Alcohol Withdrawal Enoxaparin Sodium (Enoxaparin 40 Mg/0.4 Ml Syringe) 40 mg SUBQ DAILY [facility] Last Admin: 08/22/22 08:58 Dose: 40 mg Nicotine (Nicotine 14 Mg Patch) 1 patch TOP DAILY [facility] Last Admin: 08/22/22 14:40 Dose: 1 patch Ondansetron HCl (Ondansetron Odt 4 Mg Tablet) 4 mg TL Q6HR PRN PRN Reason: Nausea / Vomiting Ondansetron HCl (Ondansetron 4 Mg/2 Ml Vial) 4 mg IVP Q6HR PRN PRN Reason: Nausea / Vomiting Oxycodone HCl (Oxycodone 5 Mg Tablet) 5 mg PO Q4HR PRN PRN Reason: Pain 5 to 7 Multivit/Folic Acid/Iron ( Vitamin Tablet) 1 tab PO DAILYWM [facility] Last Admin: 08/22/22 08:58 Dose: 1 tab Sodium Chloride (Sodium Chloride Flush 0.9% 10 Ml Syringe) 10 ml IVP PRN PRN PRN Reason: NEEDED PER PROVIDER ORDERS Sodium Chloride (Sodium Chloride Flush 0.9% 10 Ml Syringe) 10 ml IVP 0100,0900,1700 [facility] Last Admin: 08/22/22 08:58 Dose: 10 ml Sodium Phosphate (Neutra-Phos 250 Mg Tablet) 250 mg PO TIDWM [facility] Last Admin: 08/22/22 13:57 Dose: 250 mg Thiamine HCl (Thiamine 100 Mg Tablet) 100 mg PO DAILY [facility] Last Admin: 08/22/22 08:58 Dose: 100 mg No Known Home Medications 08/21/22 Exam: Temperature is 36.8. Heart rate 63. Blood pressure 156/89. Respirations 18. 94% on room air Cachectic elderly gentleman, quite a bit of a flat away cedeño, fly away here and quite disheveled. Poor dentition. Speech is occasionally difficult to understand because of how he does pronunciation and I was tongue does not come up to the roof of his mouth appropriately. Sometimes it is whistling. Neck has shotty adenopathy Lungs have coarse upper airway sounds but no increased respiratory effort or tachypnea Regular rate and rhythm no murmur Abdomen is soft, nontender, normal bowel sounds Extremities are with severe loss of muscle mass, knobby joint deformities from probable osteoarthritis but no active synovitis, multiple abrasions and excoriations on his legs and arms but they are all healing. He did have a right medial malleolar loss of skin that is already healing. Neurologically alert, oriented but very forgetful. Cooperative. A wonderfully cheerful elderly gentleman. No focal deficits but moderate generalized weakness. He cannot sit up on his own and he needs the aid of the academic assistant or nurse to sit up at the side of the bed. Sodium 138, potassium 3.4, BUN 16, creatinine 0.5, calcium 8.1, bili 1.7, AST coming down to 84 (was 147), CPK 1172 and is down from 7051 White cell count has been normal since August 20. He was admitted at 15.6 and was down to 10 the next day, 7.7 today. Slow drift of hemoglobin. On admission 12.4 and he is suddenly come down and is 10.5 today. Platelets low at 123. He was 136 on admission. Assessment/plan: 1. New problem of acute generalized weakness after a fall and hypothermia (due to exposure) His hypothermia has Resolved. He really does not have any memory of that day. Cannot remember why he ended up laying on the ground. But temperatures been normal for 24 hours. We do not have physical therapy on Tuesday this month. He was seen yesterday and he was unable to ambulate due to the high level of diffuse body pain, back pain, and truncal instability. He had poor seated balance. He required assist to hold his water cup. He was unable to hold a full water cup due to shoulder pain and poor application counselor strength. Per their notes yesterday: Pt is a pleasantly confused 82yo M admitted to hospital after being found down on 08/19/22. Pt hypothermic and with rhabdo. Pt's family/friends report he has been falling more often and is more forgetful lately. Pt lives alone in a cabin with heat and electricity, uses outdoor bathroom and water from outdoor source. Per social work report pt is indep at [employer] but does not drive. Upon PT eval, pt is alert and cooperative but has difficulty attending to tasks and is easily distracted. Pt reports he has mod to severe pain "all over because I fell off the roof and that's why I came to the hospital." Pt performs bed mob and supine to sit transfer with modAx1. Unable to maintain seated balance with R trunk lean. Pt reporting severe pain in sitting but is unable to localize pain. Seated BP 114/77, HR 84. Out of bed activity deferred due to pt reporting dizziness and increasing pain in seated. Pt returned to supine and repositioned for comfort. When medically clear, PT recommending SNF as pt is far below baseline. Will need to assess out of bed activity and pt ability to follow skilled cues to establish rehab We will see what reevaluation shows on August 23. He may need to be temporarily placed for strength, endurance. 2. 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 Mic, his cousin, is supportive of this. Encourages him to get the paperwork done. Plan: Occupational Therapy evaluation and treatment August 23 3. Alcohol abuse. No signs and symptoms of withdrawal. Status post 1 L of a banana bag and now on p.o. vitamins. He is asking for beer so I will give 1 as needed with meals.He states that he is not going to quit. When he leaves the hospital he will go back to drinking his beer. And would rather not go through withdrawal 4. 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 Has had falls in the last year. Physical therapy not able to work with him yesterday due to pain and truncal instability. They will try again August 23 5. Severe protein calorie malnutrition Seen on physical exam. Documented with low protein status. Nutrition services is working with him. Eating very little. 6. Rhabdomyolysis, nontraumatic, resolved His initial CPK was 7051. I have not been really concerned since his creatinine was normal. Repeat 1172. 7. Leukocytosis., Resolved My suspicion is that of demargination from the exposure and rhabdomyolysis. No evidence of infection on exam. No signs and symptoms of infection.
[2022-08-23] MEDS: SODIUM CHLORIDE FLUSH 0.9% 10 ML SYRINGE IVP PRN ×2 (05:09→09:00)
[2022-08-23] MEDS: SODIUM CHLORIDE FLUSH 0.9% 10 ML SYRINGE IVP SCH ×3 (05:09→17:57)
[2022-08-23] MEDS: PRENATAL VITAMIN TABLET PO SCH (08:59)
[2022-08-23] MEDS: NICOTINE 14 MG PATCH TOP SCH (08:59)
[2022-08-23] MEDS: ENOXAPARIN 40 MG/0.4 ML SYRINGE SUBQ SCH (08:59)
[2022-08-23] MEDS: THIAMINE 100 MG TABLET PO SCH (08:59)
[2022-08-23] MEDS: NEUTRA-PHOS 250 MG TABLET PO SCH ×3 (08:59→17:56)
[2022-08-23] MEDS: polyethylene glycoL 3350 17 GM PACKET PO SCH (12:36)
[2022-08-23] MEDS ORDERED: DIPHENOX/ATROPINE 2.5/0.025 MG TABLET PO PRN (12:57)
--- NOTE | 2022-08-23 14:41 | PROVIDER PROGRESS NOTE ---
Progress Note Number for 2021 2:30 PM He got a bath today. Needed 2 people to get him into the shower. Very weak, he continues to be weak enough that he cannot ambulate very well. Physical therapy will be seeing him later today. Otherwise his vitals remained stable, no fever. He either eats bites of his meals, or 50%. But not much more than that. Temperature is 36.8. Heart rate 70. Blood pressure 103/56. Yet the earlier blood pressure was 137/85. Respirations 20, 93% on room air. And alert, very disheveled elderly gentleman who looks older than stated age with diffuse cachexia and incontinence. Delightful personality with ability to follow commands. Neck is supple with shotty adenopathy. He is without teeth and finds a regular diet to be difficult to chew. Clear lungs. No crackles rhonchi wheezing Cardiovascular is with a regular rate and rhythm. Abdomen is soft, nontender and scaphoid Extremities have a healing eschar in the left medial malleolar eye. On his back he has areas of long scratches that is healed. He has an area of bruising and not quite loss of skin over the coccyx. Neurologically he is alert, oriented occasionally. But then you will forget. He is cooperative. Just forgets where he is. Has never been oriented to date. There is no focal deficit. There is no tremors today. But he has diffuse weakn ess. He needs 2 people to set him up in bed, then stand him to get him into the shower. Labs not done today. Previous labs have shown improving CK, normal renal function, and a normal white cell count. Assessment/plan: 1. Acute generalized weakness after a fall and hypothermia due to exposure. He is working with physical therapy and slowly progressing. He was not able to stand at all on Tuesday, August 22. Today he is actually able to sit, and at least have 1 moment of standing. Very unsteady on his feet. Plan: [facility] is what I am guessing. I am waiting for physical therapy evaluation to certify that need. Do he will be seen by them today. After a [facility] facility, I have spoken to his cousin Mic. Mic says the family has to get the together to decide if he is can to be long-term placement or if he is going to return back to his home with a lot of help such as Meals on Wheels, tiffanie caregivers, etc. Social work is already gotten the paperwork started on Medicaid application for this gentleman. I am hoping that the Medicaid application will move forward while he is in a [facility] facility for rehab to allow for better planning at discharge. 2. 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 Plan: PT ongoing. Add occupational therapy for cognitive eval. That should be done today hopefully. 3. Alcohol abuse. He was asking for a beer and I did provide it with his meals. So far he has not taken a step on his offer. He did have an episode of mild tremulousness yesterday but it only lasted for an hour or 2 and is been gone. Has not needed any benzodiazepines. 4. Status post frontal strokes. Seen on CT. Even before admission patient was already having some cerebellar ataxia with occasional falls. Continue to work with physical therapy. 5. Severe protein calorie malnutrition. Not eating very much of her food and dietary is working with him. We have started multivitamins, thiamine, and offered him protein supplements with Ensure. Plan: labs tomorrow but not daily 6. Nontraumatic rhabdomyolysis, resolved 7. Leukocytosis resolved. Most likely due to demargination.
[2022-08-24] MEDS: SODIUM CHLORIDE FLUSH 0.9% 10 ML SYRINGE IVP SCH ×3 (00:32→16:50)
[2022-08-24] MEDS: SODIUM CHLORIDE FLUSH 0.9% 10 ML SYRINGE IVP PRN (00:34)
[2022-08-24 05:43] LABS: BASOPHILS % (AUTO) 0.2 %; EOSINOPHILS # (AUTO) 0.1 10^3/uL (0.0-0.7); EOSINOPHILS % (AUTO) 1.3 %; HCT - HEMATOCRIT 31.1 % (42.0-52.0); HGB - HEMOGLOBIN 10.4 g/dL (14.0-18.0); LYMPHOCYTES # (AUTO) 0.7 10^3/uL (1.5-3.5); LYMPHOCYTES % (AUTO) 7.7 %; MEAN CORPUSCULAR HEMOGLOBIN 32.2 pg (27.0-31.0); MEAN CORPUSCULAR HGB CONC 33.4 g/dL (32.0-36.0); MEAN CORPUSCULAR VOLUME 96.3 fL (80.0-94.0); MEAN PLATELET VOLUME 10.4 fL (7.4-11.4); MONOCYTES # (AUTO) 1.2 10^3/uL (0.0-1.0); MONOCYTES % (AUTO) 12.6 %; NEUTROPHILS # (AUTO) 7.2 10^3/uL (1.5-6.6); NEUTROPHILS % (AUTO) 77.7 %; PLT - PLATELET COUNT 147 10^3/uL (130-450); RED BLOOD COUNT 3.23 10^6/uL (4.70-6.10); RED CELL DISTRIBUTION WIDTH 14.6 % (12.0-15.0); WHITE BLOOD COUNT 9.3 x10^3/uL (4.8-10.8)
[2022-08-24 05:54] LABS: ALBUMIN 2.4 g/dL (3.2-5.5); ALBUMIN/GLOBULIN RATIO 0.8 (1.0-2.2); BILIRUBIN,TOTAL 0.8 mg/dL (0.2-1.0); CREATININE 0.4 mg/dL (0.6-1.2); TOTAL PROTEIN 5.4 g/dL (6.7-8.2)
[2022-08-24 06:20] LABS: CALCIUM 7.9 mg/dL (8.5-10.3); POTASSIUM 2.9 mmol/L (3.5-5.0)
[2022-08-24] MEDS ORDERED: BEER 355 ML BOTTLE PO PRN (09:02)
[2022-08-24] MEDS: POTASSIUM CHLORIDE 10 MEQ CAPSULE PO SCH (10:39)
[2022-08-24] MEDS: PRENATAL VITAMIN TABLET PO SCH (10:39)
[2022-08-24] MEDS: NEUTRA-PHOS 250 MG TABLET PO SCH ×3 (10:39→16:49)
[2022-08-24] MEDS: ENOXAPARIN 40 MG/0.4 ML SYRINGE SUBQ SCH (10:42)
[2022-08-24] MEDS: THIAMINE 100 MG TABLET PO SCH (10:42)
[2022-08-24] MEDS: NICOTINE 14 MG PATCH TOP SCH (10:46)
[2022-08-24] MEDS: POTASSIUM CHLOR 10 MEQ/100 ML 10 MEQ/100 ML BAG IV SCH ×2 (10:56→12:18)
[2022-08-24] MEDS: polyethylene glycoL 3350 17 GM PACKET PO SCH (10:59)
--- NOTE | 2022-08-24 18:38 | PROVIDER PROGRESS NOTE ---
Assessment/Plan - Problem List (1) Weakness Assessment/Plan: He had acute generalized weakness after his fall and hypothermia due to exposure. He is working with physical therapy and slowly progressing. He was not able to stand at all on Tuesday, August 22. Since 08/23, he is actually able to sit, and could stand. Very unsteady on his feet. Plan[facility]. I spoke to his cousin Mic, who is a bedside today. Mic says the family has to get the together to decide if he needs to be in long-term placement or if he is going to return back to his home in his [place], with a lot of help such as Meals on Wheels, tiffanie caregivers, etc. Social work is already gotten the paperwork started on Medicaid application for this gentleman. We hope that the Medicaid application will move forward while he is in a [facility] facility for rehab to allow for better planning at discharge. 2. 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 Plan: PT ongoing. OT started yesterday. 3. Alcohol abuse. Mic, his cousin at bedside, told me that the patient now drinks about 3 beers per day, then turned to the patient and said "You do not drink 24 beers a day now like you used to." He was asking for a beer and we did order it prn with his meals. So far he has not taken a step on his offer. He did have an episode of mild tremulousness on 08/22 but it only lasted for an hour or 2 and has been gone. Plan: Continue CIWA protocol. He has not needed any benzodiazepines. 4. Status post frontal strokes. Seen on CT. Even before admission patient was already having some cerebellar ataxia with occasional falls. Plan: Continue to work with physical therapy. He needs rehab at a SNF 5. Severe protein calorie malnutrition. Not eating very much of his food and dietary is working with him. We have started multivitamins, thiamine, and ordered protein supplements with Ensure. Plan: will follow labs intermittently 6. Nontraumatic rhabdomyolysis, Resolved 7. Leukocytosis r Resolved. It was most likely due to demargination, no infection noted. - Current Meds Current Meds: Current Medications Generic Name Dose Route Start Last Admin Trade Name Freq PRN Reason Stop Dose Admin Diphenoxylate HCl/Atropine 1 tab 08/23/22 12:57 08/23/22 14:46 Diphenox/Atropine 2.5/0.025 Mg Tablet PO 1 tab QID PRN Administration Diarrhea Enoxaparin Sodium 40 mg 08/20/22 09:00 08/24/22 10:42 Enoxaparin 40 Mg/0.4 Ml Syringe SUBQ 40 mg DAILY [facility] Administration Nicotine 1 patch 08/22/22 09:00 08/24/22 10:46 Nicotine 14 Mg Patch TOP 1 patch DAILY [facility] Administration Polyethylene Glycol 17 gm 08/23/22 12:00 08/24/22 10:59 Polyethylene Glycol 3350 17 Gm Packet PO Not Given DAILY [facility] Potassium Chloride 20 meq 08/24/22 10:00 08/24/22 10:39 Potassium Chloride 10 Meq Capsule PO 20 meq DAILYWM [facility] Administration Multivit/Folic Acid/Iron 1 tab 08/21/22 12:00 08/24/22 10:39 Vitamin Tablet PO 1 tab DAILYWM [facility] Administration Sodium Chloride 10 ml 08/19/22 16:52 08/24/22 00:34 Sodium Chloride Flush 0.9% 10 Ml Syringe IVP 10 ml PRN PRN Administration NEEDED PER PROVIDER ORDERS Sodium Chloride 10 ml 08/19/22 17:00 08/24/22 16:50 Sodium Chloride Flush 0.9% 10 Ml Syringe IVP 10 ml 0100,0900,1700 [facility] Administration Sodium Phosphate 250 mg 08/21/22 12:00 08/24/22 16:49 Neutra-Phos 250 Mg Tablet PO 250 mg TIDWM [facility] Administration Thiamine HCl 100 mg 08/21/22 09:00 08/24/22 10:42 Thiamine 100 Mg Tablet PO 100 mg DAILY [facility] Administration - Lab Result Fish Bone Diagrams: 08/24/22 05:31 08/25/22 05:18 - Additional Planning My Orders: My Active Orders 08/24/22 09:02 Beer 355 ml PO 1200,1700 PRN 08/24/22 10:00 Potassium Chloride [Micro-K] 20 meq PO DAILYWM 08/25/22 05:00 BMP - BASIC METABOLIC PANEL [CHEM] DAILYLAB 08/26/22 05:00 BMP - BASIC METABOLIC PANEL [CHEM] DAILYLAB 08/27/22 05:00 BMP - BASIC METABOLIC PANEL [CHEM] DAILYLAB 08/28/22 05:00 BMP - BASIC METABOLIC PANEL [CHEM] DAILYLAB Subjective - Subjective Patient Reports: Feeling Better, Resting Comfortably, Other (Repeats the same question over) Objective Vital Signs: Vital Signs - 24 hr 08/23/22 08/24/22 08/24/22 23:43 07:53 16:27 Temperature 36.5 C 37.1 C 36.9 C Heart Rate [ 50 L 99 50 L Brachial] Respiratory 16 18 17 Rate Blood Pressure 108/65 122/69 117/68 [Right Brachial artery] O2 Saturation 95 95 96 Oxygen O2 Source Room air I&O (Last 24 Hrs): Intake and Output Totals x24h 08/22/22 08/23/22 08/24/22 23:59 23:59 23:59 Intake Total 6827.927 3054 2090 Output Total 900 625 450 Balance 013.769 5685 1640 General: Alert, Oriented x3, Other (Disheveled with long hair and long cedeño.) HEENT: Mucous membr. moist/pink, Other (Long cedeño. Thin, gaunt and appears frail. Edentulous.) Neck: Supple, No JVD Neuro: Alert, Non Focal, Other (Poor memory apparent) Cardiovascular: Regular rate, No murmurs Respiratory: No respiratory distress, Breath sounds nml Abdomen: Normal bowel sounds, Soft Extremities: No clubbing, No edema, No tenderness/swelling - Results Results: Laboratory Results WBC 9.3 x10^3/uL (4.8-10.8) 08/24/22 05:31 RBC 3.23 10^6/uL (4.70-6.10) L 08/24/22 05:31 Hgb 10.4 g/dL (14.0-18.0) L 08/24/22 05:31 Hct 31.1 % (42.0-52.0) L 08/24/22 05:31 MCV 96.3 fL (80.0-94.0) H 08/24/22 05:31 MCH 32.2 pg (27.0-31.0) H 08/24/22 05:31 MCHC 33.4 g/dL (32.0-36.0) 08/24/22 05:31 RDW 14.6 % (12.0-15.0) 08/24/22 05:31 Plt Count 147 10^3/uL (130-450) 08/24/22 05:31 MPV 10.4 fL (7.4-11.4) 08/24/22 05:31 Neut # (Auto) 7.2 10^3/uL (1.5-6.6) H 08/24/22 05:31 Lymph # (Auto) 0.7 10^3/uL (1.5-3.5) L 08/24/22 05:31 [place] # (Auto) 1.2 10^3/uL (0.0-1.0) H 08/24/22 05:31 Eos # (Auto) 0.1 10^3/uL (0.0-0.7) 08/24/22 05:31 Baso # (Auto) 0.0 10^3/uL (0.0-0.1) 08/24/22 05:31 Absolute Nucleated RBC 0.00 x10^3/uL 08/24/22 05:31 Nucleated RBC % 0.0 /100WBC 08/24/22 05:31 PT 17.1 secs (9.9-12.6) H 08/19/22 15:08 INR 1.6 (0.8-1.2) H 08/19/22 15:08 Sodium 136 mmol/L (135-145) 08/24/22 05:31 Potassium 2.9 mmol/L (3.5-5.0) L 08/24/22 05:31 Chloride 99 mmol/L (101-111) L 08/24/22 05:31 Carbon Dioxide 30 mmol/L (21-32) 08/24/22 05:31 Anion Gap 7.0 (6-13) 08/24/22 05:31 BUN 16 mg/dL (6-20) 08/24/22 05:31 Creatinine 0.4 mg/dL (0.6-1.2) L 08/24/22 05:31 Estimated GFR (MDRD) 206 (>89) 08/24/22 05:31 Glucose 118 mg/dL (70-100) H 08/24/22 05:31 POC Whole Bld Glucose 109 mg/dL (70 - 100) H 08/20/22 09:08 Lactic Acid 0.9 mmol/L (0.5-2.2) 08/21/22 05:25 Calcium 7.9 mg/dL (8.5-10.3) L 08/24/22 05:31 Phosphorus 2.7 mg/dL (2.5-4.6) 08/24/22 05:31 Magnesium 2.2 mg/dL (1.7-2.8) 08/21/22 05:25 Total Bilirubin 0.8 mg/dL (0.2-1.0) 08/24/22 05:31 AST 35 IU/L (10-42) 08/24/22 05:31 ALT 34 IU/L (10-60) 08/24/22 05:31 Alkaline Phosphatase 51 IU/L (42-121) 08/24/22 05:31 Ammonia 22.4 umol/L (7-35) 08/20/22 05:17 Total Creatine Kinase 200 IU/L (22-269) 08/24/22 05:31 Total Protein 5.4 g/dL (6.7-8.2) L 08/24/22 05:31 Albumin 2.4 g/dL (3.2-5.5) L 08/24/22 05:31 Globulin 3.0 g/dL (2.1-4.2) 08/24/22 05:31 Albumin/Globulin Ratio 0.8 (1.0-2.2) L 08/24/22 05:31 Lipase 20 U/L (22-51) L 08/19/22 15:08 Urine Color YELLOW 08/19/22 16:00 Urine Clarity HAZY (CLEAR) 08/19/22 16:00 Urine pH 5.5 PH (5.0-7.5) 08/19/22 16:00 Ur Specific [place] >=1.030 (1.002-1.030) H 08/19/22 16:00 Urine Protein TRACE mg/dL (NEGATIVE) 08/19/22 16:00 Urine Glucose (UA) 100 mg/dL (NEGATIVE) H 08/19/22 16:00 Urine Ketones >=80 mg/dL (NEGATIVE) H 08/19/22 16:00 Urine Occult Blood LARGE (NEGATIVE) H 08/19/22 16:00 Urine Nitrite NEGATIVE (NEGATIVE) 08/19/22 16:00 Urine Bilirubin NEGATIVE (NEGATIVE) 08/19/22 16:00 Urine Urobilinogen 0.2 (NORMAL) E.U./dL (NORMAL) 08/19/22 16:00 Ur Leukocyte Esterase NEGATIVE (NEGATIVE) 08/19/22 16:00 Urine RBC 6-10 /HPF (0-5) H 08/19/22 16:00 Urine WBC 0-3 /HPF (0-3) 08/19/22 16:00 Ur Squamous Epith Cells NONE SEEN (<= Few) 08/19/22 16:00 Urine Bacteria Rare /HPF (None Seen) 08/19/22 16:00 Urine Casts 0-2 Hyaline Casts /LPF 08/19/22 16:00 Urine Mucus Moderate Strands 08/19/22 16:00 Ur Microscopic Review INDICATED 08/19/22 16:00 Urine Culture Comments NOT INDICATED 08/19/22 16:00 Stl C. diff Tox B Gene NEGATIVE (NEGATIVE) 08/23/22 13:30 Urine Opiates Screen NEGATIVE (NEGATIVE) 08/19/22 16:00 Ur Oxycodone Screen NEGATIVE (NEGATIVE) 08/19/22 16:00 Urine Methadone Screen NEGATIVE (NEGATIVE) 08/19/22 16:00 Ur Propoxyphene Screen NEGATIVE (NEGATIVE) 08/19/22 16:00 Ur Barbiturates Screen NEGATIVE (NEGATIVE) 08/19/22 16:00 Ur Tricyclics Screen NEGATIVE (NEGATIVE) 08/19/22 16:00 Ur Phencyclidine Scrn NEGATIVE (NEGATIVE) 08/19/22 16:00 Ur Amphetamine Screen NEGATIVE (NEGATIVE) 08/19/22 16:00 U Methamphetamines Scrn NEGATIVE (NEGATIVE) 08/19/22 16:00 U Benzodiazepines Scrn NEGATIVE (NEGATIVE) 08/19/22 16:00 Urine Cocaine Screen NEGATIVE (NEGATIVE) 08/19/22 16:00 U Cannabinoids Screen POSITIVE (NEGATIVE) H 08/19/22 16:00 Ethyl Alcohol < 5.0 mg/dL 08/19/22 15:08 SARS-CoV-2 (PCR) NOT DETECTED 08/19/22 15:36
[2022-08-25] MEDS: SODIUM CHLORIDE FLUSH 0.9% 10 ML SYRINGE IVP SCH ×3 (01:41→17:13)
[2022-08-25 06:02] LABS: CALCIUM 7.5 mg/dL (8.5-10.3); CREATININE 0.5 mg/dL (0.6-1.2); POTASSIUM 3.2 mmol/L (3.5-5.0)
[2022-08-25] MEDS: NEUTRA-PHOS 250 MG TABLET PO SCH ×3 (08:15→17:12)
[2022-08-25] MEDS: polyethylene glycoL 3350 17 GM PACKET PO SCH (08:15)
[2022-08-25] MEDS: THIAMINE 100 MG TABLET PO SCH (08:15)
[2022-08-25] MEDS: PRENATAL VITAMIN TABLET PO SCH (08:15)
[2022-08-25] MEDS: POTASSIUM CHLORIDE 10 MEQ CAPSULE PO SCH (08:15)
[2022-08-25] MEDS: NICOTINE 14 MG PATCH TOP SCH (08:16)
[2022-08-25] MEDS: ENOXAPARIN 40 MG/0.4 ML SYRINGE SUBQ SCH (08:18)
[2022-08-25] MEDS: POTASSIUM CHLOR 10 MEQ/100 ML 10 MEQ/100 ML BAG IV SCH ×2 (09:35→11:14)
--- NOTE | 2022-08-25 16:39 | PROVIDER PROGRESS NOTE ---
Assessment/Plan - Problem List (1) Weakness Assessment/Plan: He had acute generalized weakness after his fall and hypothermia from exposure to the cold weather. He is working with physical therapy and slowly progressing. He was not able to stand at all on Tuesday, August 22. Since 08/23, he is actually able to sit, and could stand. Very unsteady on his feet. Plan: prison facility for rehab. I spoke to his cousin Mic, who is a bedside yesterday. Mic says the family has to get the together to decide if he needs to be in long-term placement or if he is going to return back to his h ome in his [place], with a lot of help such as Meals on Wheels, tiffanie caregivers, etc. Social work is already gotten the paperwork started on Medicaid application for this gentleman. We hope that the Medicaid application will move forward while he is in a senior care facility for rehab to allow for better planning at discharge. 2. 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 Plan: PT and OT are ongoing. Will order high dose Thiamine, in case some of this cognitive deficit is from Wernicke's encephalopathy. 3. Alcohol abuse. Mic, his cousin at bedside, told me that the patient now drinks about 3 beers per day, then turned to the patient and said "You do not drink 24 beers a day now, like you used to." He was asking for a beer and we did order it prn with his meals. So far he has not taken a step on his offer. He did have an episode of mild tremulousness on 08/22 but it only lasted for an hour or 2 and has been gone. Plan: He has not needed any benzodiazepines. Thiamine ordered. 4. Hypokalemia and Hyponatremia Due to poor oral intake. Will replace Follow BMP daily 5. Status post frontal strokes. Seen on CT. Even before admission patient was already having some cerebellar ataxia with occasional falls. Plan: Continue to work with physical therapy. He needs rehab at a SNF 6. Severe protein calorie malnutrition. Not eating very much of his food and dietary is working with him. We have started multivitamins, thiamine, and ordered protein supplements with Ensure. Plan: will follow labs intermittently 7. Nontraumatic rhabdomyolysis, Resolved 8. Leukocytosis r Resolved. It was most likely due to demargination, no infection noted. - Current Meds Current Meds: Current Medications Generic Name Dose Route Start Last Admin Trade Name Freq PRN Reason Stop Dose Admin Diphenoxylate HCl/Atropine 1 tab 08/23/22 12:57 08/23/22 14:46 Diphenox/Atropine 2.5/0.025 Mg Tablet PO 1 tab QID PRN Administration Diarrhea Enoxaparin Sodium 40 mg 08/20/22 09:00 08/25/22 08:18 Enoxaparin 40 Mg/0.4 Ml Syringe SUBQ 40 mg DAILY JAQUELIN Administration Nicotine 1 patch 08/22/22 09:00 08/25/22 08:16 Nicotine 14 Mg Patch TOP 1 patch DAILY JAQUELIN Administration Polyethylene Glycol 17 gm 08/23/22 12:00 08/25/22 08:15 Polyethylene Glycol 3350 17 Gm Packet PO 17 gm DAILY JAQUELIN Administration Potassium Chloride 20 meq 08/24/22 10:00 08/25/22 08:15 Potassium Chloride 10 Meq Capsule PO 20 meq DAILYWM JAQUELIN Administration Multivit/Folic Acid/Iron 1 tab 08/21/22 12:00 08/25/22 08:15 Vitamin Tablet PO 1 tab DAILYWM JAQUELIN Administration Sodium Chloride 10 ml 08/19/22 16:52 08/24/22 00:34 Sodium Chloride Flush 0.9% 10 Ml Syringe IVP 10 ml PRN PRN Administration NEEDED PER PROVIDER ORDERS Sodium Chloride 10 ml 08/19/22 17:00 08/25/22 08:19 Sodium Chloride Flush 0.9% 10 Ml Syringe IVP 10 ml 0100,0900,1700 JAQUELIN Administration Sodium Phosphate 250 mg 08/21/22 12:00 08/25/22 11:16 Neutra-Phos 250 Mg Tablet PO 250 mg TIDWM JAQUELIN Administration Thiamine HCl 100 mg 08/21/22 09:00 08/25/22 08:15 Thiamine 100 Mg Tablet PO 100 mg DAILY JAQUELIN Administration - Lab Result Fish Bone Diagrams: 08/24/22 05:31 08/25/22 05:18 - Additional Planning My Orders: My Active Orders 08/26/22 05:00 BMP - BASIC METABOLIC PANEL [CHEM] DAILYLAB 08/27/22 05:00 BMP - BASIC METABOLIC PANEL [CHEM] DAILYLAB 08/28/22 05:00 BMP - BASIC METABOLIC PANEL [CHEM] DAILYLAB Subjective - Subjective Patient Reports: Resting Comfortably, No Complaints Objective Vital Signs: Vital Signs - 24 hr 08/24/22 08/25/22 08/25/22 23:44 08:11 15:49 Temperature 36.5 C 36.7 C 36.7 C Heart Rate [ 86 116 H 85 Brachial] Respiratory 16 16 20 Rate Blood Pressure 124/62 120/62 138/85 H [Right Brachial artery] O2 Saturation 96 96 98 Oxygen O2 Source Room air I&O (Last 24 Hrs): Intake and Output Totals x24h 08/23/22 08/24/22 08/25/22 23:59 23:59 23:59 Intake Total 2187 2340 2660 Output Total 625 650 550 Balance 1562 1690 2110 General: Alert, Other (Cachectic, disheveled, long hair and long cedeño) Neck: Supple, No JVD Neuro: Alert, Disoriented, Non Focal, Other (Poor memory. No temor.) Cardiovascular: Regular rate, No murmurs Respiratory: No respiratory distress, Breath sounds nml Abdomen: Normal bowel sounds, Soft, No tenderness Extremities: No clubbing, No edema, No tenderness/swelling, Other (Bruises) - Results Results: Laboratory Results WBC 9.3 x10^3/uL (4.8-10.8) 08/24/22 05:31 RBC 3.23 10^6/uL (4.70-6.10) L 08/24/22 05:31 Hgb 10.4 g/dL (14.0-18.0) L 08/24/22 05:31 Hct 31.1 % (42.0-52.0) L 08/24/22 05:31 MCV 96.3 fL (80.0-94.0) H 08/24/22 05:31 MCH 32.2 pg (27.0-31.0) H 08/24/22 05:31 MCHC 33.4 g/dL (32.0-36.0) 08/24/22 05:31 RDW 14.6 % (12.0-15.0) 08/24/22 05:31 Plt Count 147 10^3/uL (130-450) 08/24/22 05:31 MPV 10.4 fL (7.4-11.4) 08/24/22 05:31 Neut # (Auto) 7.2 10^3/uL (1.5-6.6) H 08/24/22 05:31 Lymph # (Auto) 0.7 10^3/uL (1.5-3.5) L 08/24/22 05:31 [place] # (Auto) 1.2 10^3/uL (0.0-1.0) H 08/24/22 05:31 Eos # (Auto) 0.1 10^3/uL (0.0-0.7) 08/24/22 05:31 Baso # (Auto) 0.0 10^3/uL (0.0-0.1) 08/24/22 05:31 Absolute Nucleated RBC 0.00 x10^3/uL 08/24/22 05:31 Nucleated RBC % 0.0 /100WBC 08/24/22 05:31 PT 17.1 secs (9.9-12.6) H 08/19/22 15:08 INR 1.6 (0.8-1.2) H 08/19/22 15:08 Sodium 132 mmol/L (135-145) L 08/25/22 05:18 Potassium 3.2 mmol/L (3.5-5.0) L 08/25/22 05:18 Chloride 96 mmol/L (101-111) L 08/25/22 05:18 Carbon Dioxide 30 mmol/L (21-32) 08/25/22 05:18 Anion Gap 6.0 (6-13) 08/25/22 05:18 BUN 15 mg/dL (6-20) 08/25/22 05:18 Creatinine 0.5 mg/dL (0.6-1.2) L 08/25/22 05:18 Estimated GFR (MDRD) 159 (>89) 08/25/22 05:18 Glucose 109 mg/dL (70-100) H 08/25/22 05:18 POC Whole Bld Glucose 109 mg/dL (70 - 100) H 08/20/22 09:08 Lactic Acid 0.9 mmol/L (0.5-2.2) 08/21/22 05:25 Calcium 7.5 mg/dL (8.5-10.3) L 08/25/22 05:18 Phosphorus 2.7 mg/dL (2.5-4.6) 08/24/22 05:31 Magnesium 1.8 mg/dL (1.7-2.8) 08/25/22 05:18 Total Bilirubin 0.8 mg/dL (0.2-1.0) 08/24/22 05:31 AST 35 IU/L (10-42) 08/24/22 05:31 ALT 34 IU/L (10-60) 08/24/22 05:31 Alkaline Phosphatase 51 IU/L (42-121) 08/24/22 05:31 Ammonia 22.4 umol/L (7-35) 08/20/22 05:17 Total Creatine Kinase 200 IU/L (22-269) 08/24/22 05:31 Total Protein 5.4 g/dL (6.7-8.2) L 08/24/22 05:31 Albumin 2.4 g/dL (3.2-5.5) L 08/24/22 05:31 Globulin 3.0 g/dL (2.1-4.2) 08/24/22 05:31 Albumin/Globulin Ratio 0.8 (1.0-2.2) L 08/24/22 05:31 Lipase 20 U/L (22-51) L 08/19/22 15:08 Urine Color YELLOW 08/19/22 16:00 Urine Clarity HAZY (CLEAR) 08/19/22 16:00 Urine pH 5.5 PH (5.0-7.5) 08/19/22 16:00 Ur Specific [place] >=1.030 (1.002-1.030) H 08/19/22 16:00 Urine Protein TRACE mg/dL (NEGATIVE) 08/19/22 16:00 Urine Glucose (UA) 100 mg/dL (NEGATIVE) H 08/19/22 16:00 Urine Ketones >=80 mg/dL (NEGATIVE) H 08/19/22 16:00 Urine Occult Blood LARGE (NEGATIVE) H 08/19/22 16:00 Urine Nitrite NEGATIVE (NEGATIVE) 08/19/22 16:00 Urine Bilirubin NEGATIVE (NEGATIVE) 08/19/22 16:00 Urine Urobilinogen 0.2 (NORMAL) E.U./dL (NORMAL) 08/19/22 16:00 Ur Leukocyte Esterase NEGATIVE (NEGATIVE) 08/19/22 16:00 Urine RBC 6-10 /HPF (0-5) H 08/19/22 16:00 Urine WBC 0-3 /HPF (0-3) 08/19/22 16:00 Ur Squamous Epith Cells NONE SEEN (<= Few) 08/19/22 16:00 Urine Bacteria Rare /HPF (None Seen) 08/19/22 16:00 Urine Casts 0-2 Hyaline Casts /LPF 08/19/22 16:00 Urine Mucus Moderate Strands 08/19/22 16:00 Ur Microscopic Review INDICATED 08/19/22 16:00 Urine Culture Comments NOT INDICATED 08/19/22 16:00 Stl C. diff Tox B Gene NEGATIVE (NEGATIVE) 08/23/22 13:30 Urine Opiates Screen NEGATIVE (NEGATIVE) 08/19/22 16:00 Ur Oxycodone Screen NEGATIVE (NEGATIVE) 08/19/22 16:00 Urine Methadone Screen NEGATIVE (NEGATIVE) 08/19/22 16:00 Ur Propoxyphene Screen NEGATIVE (NEGATIVE) 08/19/22 16:00 Ur Barbiturates Screen NEGATIVE (NEGATIVE) 08/19/22 16:00 Ur Tricyclics Screen NEGATIVE (NEGATIVE) 08/19/22 16:00 Ur Phencyclidine Scrn NEGATIVE (NEGATIVE) 08/19/22 16:00 Ur Amphetamine Screen NEGATIVE (NEGATIVE) 08/19/22 16:00 U Methamphetamines Scrn NEGATIVE (NEGATIVE) 08/19/22 16:00 U Benzodiazepines Scrn NEGATIVE (NEGATIVE) 08/19/22 16:00 Urine Cocaine Screen NEGATIVE (NEGATIVE) 08/19/22 16:00 U Cannabinoids Screen POSITIVE (NEGATIVE) H 08/19/22 16:00 Ethyl Alcohol < 5.0 mg/dL 08/19/22 15:08 SARS-CoV-2 (PCR) NOT DETECTED 08/19/22 15:36
[2022-08-26] MEDS: SODIUM CHLORIDE FLUSH 0.9% 10 ML SYRINGE IVP SCH ×3 (01:15→15:35)
[2022-08-26 05:37] LABS: CALCIUM 7.8 mg/dL (8.5-10.3); CREATININE 0.4 mg/dL (0.6-1.2); POTASSIUM 3.6 mmol/L (3.5-5.0)
[2022-08-26] MEDS: polyethylene glycoL 3350 17 GM PACKET PO SCH (08:56)
[2022-08-26] MEDS: PRENATAL VITAMIN TABLET PO SCH (08:57)
[2022-08-26] MEDS: THIAMINE 100 MG TABLET PO SCH (08:57)
[2022-08-26] MEDS: NEUTRA-PHOS 250 MG TABLET PO SCH ×3 (08:58→17:35)
[2022-08-26] MEDS: ENOXAPARIN 40 MG/0.4 ML SYRINGE SUBQ SCH (08:59)
[2022-08-26] MEDS: NICOTINE 14 MG PATCH TOP SCH (08:59)
[2022-08-26] MEDS: THIAMINE INJ 400 MG in SODIUM CHLORIDE 0.9% 50 ML IV SCH (10:57)
[2022-08-27] MEDS: SODIUM CHLORIDE FLUSH 0.9% 10 ML SYRINGE IVP SCH ×2 (00:28→09:00)
[2022-08-27 05:57] LABS: CALCIUM 7.8 mg/dL (8.5-10.3); CREATININE 0.4 mg/dL (0.6-1.2); POTASSIUM 3.7 mmol/L (3.5-5.0)
--- NOTE | 2022-08-27 08:17 | Discharge Plan ---
"Discharge Plan for SNF / [facility] - Discharge Plan And Transition Orders Problem Reviewed?: Yes Disposition: 03 SNF DC/Xfer Condition: Fair Allergies and Adverse Reactions: Allergies Allergy/AdvReac Type Severity Reaction Status Date / Time Unable to Assess Allergy Verified 08/19/22 15:41 Health Concerns: Patient admitted after being found down on the sidewalk. He presented hypothermic, and in rhabdomyolysis and dehydrated. After warming and IV fluid treatment, we found that he has dementia, probably from frontal strokes and history of alcohol abuse and aging. He is deconditioned and requires PT and OT rehab. Plan of Treatment: Good hydration and daily PT and OT. Care Goals: Improvement in weakness and stabilization are the goals. Assessment: The patient (and his cousin Mic) are agreeable with the plan. 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 3) Alcohol abuse. He has not needed any benzodiazepines and never asked for the beer that was o rdered prn with meals 4) Status post frontal strokes. Seen on head CT. Even before admission, patient was already having cerebellar ataxia with occasional falls per his cousin. 5) Severe protein calorie malnutrition. 6) Rhabdomyolysis Resolved with NS iv hydration 7) Hypokalemia Resolved with replacement 8) Hyponatremia Improved with NS iv hydration 9) Hypothermia Resolved with a warming unit Medicare Certification Statement: I certify that Post Hospital prison care is medically necessary on a continuing basis for any of the conditions for which she/he is receiving care during hospitalization. Notify PCP of admission and forward orders to primary provider for signature. Weight on admission and: Monthly Other Notification Orders: Call PCP immediately if patient develops dyspnea, chest pain/tightness or edema. House Bowel Program: Yes Additional Bowel Program Orders: If no BM after 2 days, nurse may give M.O.M. 30ml PO PRN and/or ducolax Supp 1 [place] and/or JOYCELYN 250mg P.O., and/or senna 1-2 tabs PO. On day 3 nurse may give repeat above order until residents constipation is resolved. Annual Influenza Vaccine (between Jun 10 and January 07): Yes Two-step PPD per [facility] [phone] or approved exception documents: Yes Treatments & Other Orders: Daily PT and OT Medication Orders: PLEASE REFER TO THE DISCHARGE MEDICATION LIST. Insulin Orders?: No - Medications New Prescriptions: Neutra-Phos [K-Phos Neutral] 250 mg PO DAILY #30 tab Nicotine 14 mg Patch [Nicoderm] 1 patch TOP DAILY #7 patch Multivitamin [Theragran] 1 each PO DAILY #30 tablet Thiamine [Vitamin B-1] 100 mg PO DAILY #30 tab - Diet Type: Geriatric Texture: Mech soft (Minced and (moist if possible)) Liquids: Thin May have monthly special meal: Yes - Therapies | Activity Therapy: Evaluation | Treat if indicated: PT, OT Rehabilitation Potential: Maximize functional status Activity: Activity as Tolerated Weight Bearing: Full Weight Assistance Devices: Walker Follow Up: See PCP after Dch from SNF."
--- NOTE | 2022-08-27 08:50 | DISCHARGE SUMMARY ---
Discharge Summary Admit Date: 08/19/22 Discharge Date: 08/27/22 Discharging Provider: Dr Mili Amaro Primary Care Provider: None Condition at Discharge: Fair Discharge Disposition: SNF DC/Xfer Discharge Facility Name: [facility] History of Present Illness: From the admission H&P of Dr Tania Echols: This is an 82-year-old white male who lives a chosen lifestyle of roughing it. He has limited income from Social Security and has chosen to live in a small cabin on a friend's property where there is electricity and heat but no running water in the house. If he wants to take a bath, and "peel it off after a year" he will run a spigot out in the yard. He is done well with this lifestyle because he likes to spend time outdoors, fishing, hunting, and hanging out with his cousin. He likes to smoke tobacco and weed and drink beers with his cousin. In the last couple of years, his cousin is noted that the patient is getting a little bit more forgetful and repetitive but still able to take care of himself. Judgment was still sound. He has been taking more "headers" because of loss of balance and will fall. The cousin sees the patient 2 or 3 times a week. He is always been a skinny kraig, has a poor diet, and that has not changed. The family has been starting get a little bit worried about what they were going to do about confronting him. They recognize that he is getting older, probably not a good idea to be living where he is living but nobody had any solutions to how to fix this problem. The patient's own brother is 3 years younger and has the same lifestyle and lives up in [place]. Today, the story is obtained from the cousin. He states that the landlord/friend saw him this morning. What was weird is that he was wearing shorts and that was it. His landlord/friend said "hey man, get some clothes on" and handed him a shirt and a jacket. At that time the patient was conversant but a little bit vague. A little bit more out of it than usual. However he did respond to his cat, stroked the cat, spoke to the cat like he normally does. They told him to get inside. And his landlord/friend went to work. Around 2 in the afternoon they came back from work and found the patient still in the same spot he was left at this morning, only this time he was laying on the ground. He may have been on the ground this entire day. That is when they called ambulance. In triage his temperature was 33.3 rectally. Blood pressure 129/105. Respirations 30. He weighed 38.55 kg and is estimated to be 5 foot 6 inches tall. He is a disheveled, bearded gentleman. Bruises and abrasions on his body. Chilblains of hands and feet. Toenails curved and long by about 2 inches. Tachypneic, but clear lungs, and a regular rate and rhythm. Nonverbal. Sodium was 132. BUN 35. Glucose 191. Lactic acid 3. Total bili 1.8. CK 7051. White cell count is 15.6. Hemoglobin 12.4. Platelets 136. INR 1.6. Urinalysis has occult blood, ketonuria, glucosuria, red cells, a small amount of white cells and 0-3. Negative leukocyte Estrace. Negative nitrates. Toxicology screen positive for cannabinoids. Ethyl alcohol less than 5. COVID- negative. Chest x-ray was without active disease. Head CT had no acute intracranial findings. He had remote small left and right frontal infarcts. C- spine CT was without acute evidence of traumatic cervical injury. I am now being asked to admit this patient for hypothermia, encephalopathy, and probable rhabdomyolysis. Past medical history: According to the cousin this patient has never been hospitalized before. He has not had any major surgeries or fractures. He has not been seen by In over 30 years. 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 6) Alcohol abuse. He did not needed any benzodiazepines and never asked for the beer that was ordered prn with meals. He received Thiamine and was discharged on this. 7) Status post frontal strokes. Seen on head CT. Even before admission, patient was already having cerebellar ataxia, with occasional falls, per his cousin. 8) Weakness PT found him to have marked truncal and leg weakness. He was discharged to a SNF for PT and OT rehab. 9) Severe protein calorie malnutrition. He is edentulous. His BMI is 13.7. High calorie supplements were ordered. - ALLERGIES Allergies/Adverse Reactions: Allergies Allergy/AdvReac Type Severity Reaction Status Date / Time Unable to Assess Allergy Verified 08/19/22 15:41 - MEDICATIONS Home Medications: Ambulatory Orders Medication Instructions Recorded Confirmed Multivitamin [Theragran] 1 each PO DAILY #30 tablet 08/27/22 Neutra-Phos [K-Phos Neutral] 250 mg PO DAILY #30 tab 08/27/22 Nicotine 14 mg Patch [Nicoderm] 1 patch TOP DAILY #7 patch 08/27/22 Thiamine [Vitamin B-1] 100 mg PO DAILY #30 tab 08/27/22 - PHYSICAL EXAM AT DISCHARGE General Appearance: positive: No acute distress, Alert, Other (Cachectic, long hair and long cedeño) Eyes Bilateral: positive: Normal inspection Neck: positive: Nml inspection, No JVD Respiratory: positive: No respiratory distress, Breath sounds nml Cardiovascular: positive: Regular rate & rhythm, No murmur Abdomen: positive: Non-tender, Nml bowel sounds, No distention Skin: positive: Warm, Dry Extremities: positive: Non-tender, No pedal edema, Other (Bruise of L knee) Neurologic/Psychiatric: positive: Motor nml, Disoriented to time - LABS Result Diagrams: 08/24/22 05:31 08/27/22 05:28 - DIAGNOSTIC IMAGING Diagnostic Imaging Results: Final report reviewed - FOLLOW UP Follow Up: See PCP after DCh from SNF - TIME SPENT Time Spent in Discharge (Minutes): 45
[2022-08-27] MEDS: THIAMINE 100 MG TABLET PO SCH (08:59)
[2022-08-27] MEDS: NEUTRA-PHOS 250 MG TABLET PO SCH (08:59)
[2022-08-27] MEDS: ENOXAPARIN 40 MG/0.4 ML SYRINGE SUBQ SCH (08:59)
[2022-08-27] MEDS: PRENATAL VITAMIN TABLET PO SCH (08:59)
[2022-08-27] MEDS: polyethylene glycoL 3350 17 GM PACKET PO SCH (09:00)
[2022-08-27] MEDS: NICOTINE 14 MG PATCH TOP SCH (09:00)
[2022-08-27] MEDS: THIAMINE INJ 400 MG in SODIUM CHLORIDE 0.9% 50 ML IV SCH (10:39)
[2022-08-27 11:09] VITALS: BP 118/70
--- NOTE | 2022-08-27 15:44 | PROVIDER PROGRESS NOTE ---
Assessment/Plan - Problem List (1) Weakness Assessment/Plan: (1) Weakness Assessment/Plan: He had acute generalized weakness after his fall and hypothermia from exposure to the cold weather. He is working with physical therapy and slowly progressing. He was not able to stand at all on Tuesday, August 22. Since 08/23, he is actually able to sit, and could stand. Very unsteady on his feet. Plan[facility]. I spoke to his cousin Mic, who is a be dside. Mic says the family has to get the together to decide if he needs to be in long-term placement or if he is going to return back to his home in his [place], with a lot of help such as Meals on Wheels, tiffanie caregivers, etc. Social work is already gotten the paperwork started on Medicaid application for this gentleman. We hope that the Medicaid application will move forward while he is in a [facility]dc facility for rehab to allow for better planning at discharge. 2. 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 Plan: PT and OT are ongoing. We ordered high dose Thiamine for several days, in case some of this cognitive deficit is from Wernicke's encephalopathy. 3. Alcohol abuse. Mic, his cousin at bedside, told me that the patient now drinks about 3 beers per day, then turned to the patient and said "You do not drink 24 beers a day now, like you used to." He was asking for a beer and we did order it prn with his meals. So far he has not taken a step on his offer. He did have an episode of mild tremulousness on 08/22 but it only lasted for an hour or 2 and has been gone. Plan: He has not needed any benzodiazepines. Thiamine ordered. 4. Hypokalemia Improved on replacement. 5. Hyponatremia Due to poor oral intake. Improved Follow BMP daily 6. Status post frontal strokes. Seen on CT. Even before admission patient was already having some cerebellar ataxia with occasional falls. Plan: Continue to work with physical therapy. He needs rehab at a SNF 7. Severe protein calorie malnutrition. Not eating very much of his food and dietary is working with him. We have started multivitamins, thiamine, and ordered protein supplements with Ensure. Plan: will follow labs intermittently 8. Nontraumatic rhabdomyolysis, Resolved 9. Hypothermia Resolved. - Lab Result Fish Bone Diagrams: 08/24/22 05:31 08/27/22 05:28 Subjective - Subjective Patient Reports: Resting Comfortably, No Complaints Objective Vital Signs: Vital Signs - 24 hr 08/27/22 08/27/22 08/27/22 00:57 07:57 10:40 Temperature 37.2 C 36.3 C L 36.8 C Heart Rate [ 74 84 79 Brachial] Respiratory 18 20 18 Rate Blood Pressure 110/68 133/76 H 118/70 [Right Brachial artery] O2 Saturation 97 98 95 Oxygen O2 Source Room air I&O (Last 24 Hrs): Intake and Output Totals x24h 08/25/22 08/26/22 08/27/22 23:59 23:59 23:59 Intake Total 3030 1794 594 Output Total 875 Balance 2155 1794 594 General: Alert, Other (Cachectic WM, Long hair and long cedeño) HEENT: Mucous membr. moist/pink, Other (edentulous) Neuro: Alert, Disoriented, Non Focal, Other (Poor memory) Cardiovascular: Regular rate Respiratory: No respiratory distress Abdomen: Normal bowel sounds, Soft Extremities: No clubbing, No edema, No tenderness/swelling - Results Results: Laboratory Results WBC 9.3 x10^3/uL (4.8-10.8) 08/24/22 05:31 RBC 3.23 10^6/uL (4.70-6.10) L 08/24/22 05:31 Hgb 10.4 g/dL (14.0-18.0) L 08/24/22 05:31 Hct 31.1 % (42.0-52.0) L 08/24/22 05:31 MCV 96.3 fL (80.0-94.0) H 08/24/22 05:31 MCH 32.2 pg (27.0-31.0) H 08/24/22 05:31 MCHC 33.4 g/dL (32.0-36.0) 08/24/22 05:31 RDW 14.6 % (12.0-15.0) 08/24/22 05:31 Plt Count 147 10^3/uL (130-450) 08/24/22 05:31 MPV 10.4 fL (7.4-11.4) 08/24/22 05:31 Neut # (Auto) 7.2 10^3/uL (1.5-6.6) H 08/24/22 05:31 Lymph # (Auto) 0.7 10^3/uL (1.5-3.5) L 08/24/22 05:31 Stokes # (Auto) 1.2 10^3/uL (0.0-1.0) H 08/24/22 05:31 Eos # (Auto) 0.1 10^3/uL (0.0-0.7) 08/24/22 05:31 Baso # (Auto) 0.0 10^3/uL (0.0-0.1) 08/24/22 05:31 Absolute Nucleated RBC 0.00 x10^3/uL 08/24/22 05:31 Nucleated RBC % 0.0 /100WBC 08/24/22 05:31 PT 17.1 secs (9.9-12.6) H 08/19/22 15:08 INR 1.6 (0.8-1.2) H 08/19/22 15:08 Sodium 132 mmol/L (135-145) L 08/27/22 05:28 Potassium 3.7 mmol/L (3.5-5.0) 08/27/22 05:28 Chloride 96 mmol/L (101-111) L 08/27/22 05:28 Carbon Dioxide 29 mmol/L (21-32) 08/27/22 05:28 Anion Gap 7.0 (6-13) 08/27/22 05:28 BUN 14 mg/dL (6-20) 08/27/22 05:28 Creatinine 0.4 mg/dL (0.6-1.2) L 08/27/22 05:28 Estimated GFR (MDRD) 206 (>89) 08/27/22 05:28 Glucose 108 mg/dL (70-100) H 08/27/22 05:28 POC Whole Bld Glucose 109 mg/dL (70 - 100) H 08/20/22 09:08 Lactic Acid 0.9 mmol/L (0.5-2.2) 08/21/22 05:25 Calcium 7.8 mg/dL (8.5-10.3) L 08/27/22 05:28 Phosphorus 2.7 mg/dL (2.5-4.6) 08/24/22 05:31 Magnesium 1.8 mg/dL (1.7-2.8) 08/25/22 05:18 Total Bilirubin 0.8 mg/dL (0.2-1.0) 08/24/22 05:31 AST 35 IU/L (10-42) 08/24/22 05:31 ALT 34 IU/L (10-60) 08/24/22 05:31 Alkaline Phosphatase 51 IU/L (42-121) 08/24/22 05:31 Ammonia 22.4 umol/L (7-35) 08/20/22 05:17 Total Creatine Kinase 200 IU/L (22-269) 08/24/22 05:31 Total Protein 5.4 g/dL (6.7-8.2) L 08/24/22 05:31 Albumin 2.4 g/dL (3.2-5.5) L 08/24/22 05:31 Globulin 3.0 g/dL (2.1-4.2) 08/24/22 05:31 Albumin/Globulin Ratio 0.8 (1.0-2.2) L 08/24/22 05:31 Lipase 20 U/L (22-51) L 08/19/22 15:08 Urine Color YELLOW 08/19/22 16:00 Urine Clarity HAZY (CLEAR) 08/19/22 16:00 Urine pH 5.5 PH (5.0-7.5) 08/19/22 16:00 Ur Specific [place] >=1.030 (1.002-1.030) H 08/19/22 16:00 Urine Protein TRACE mg/dL (NEGATIVE) 08/19/22 16:00 Urine Glucose (UA) 100 mg/dL (NEGATIVE) H 08/19/22 16:00 Urine Ketones >=80 mg/dL (NEGATIVE) H 08/19/22 16:00 Urine Occult Blood LARGE (NEGATIVE) H 08/19/22 16:00 Urine Nitrite NEGATIVE (NEGATIVE) 08/19/22 16:00 Urine Bilirubin NEGATIVE (NEGATIVE) 08/19/22 16:00 Urine Urobilinogen 0.2 (NORMAL) E.U./dL (NORMAL) 08/19/22 16:00 Ur Leukocyte Esterase NEGATIVE (NEGATIVE) 08/19/22 16:00 Urine RBC 6-10 /HPF (0-5) H 08/19/22 16:00 Urine WBC 0-3 /HPF (0-3) 08/19/22 16:00 Ur Squamous Epith Cells NONE SEEN (<= Few) 08/19/22 16:00 Urine Bacteria Rare /HPF (None Seen) 08/19/22 16:00 Urine Casts 0-2 Hyaline Casts /LPF 08/19/22 16:00 Urine Mucus Moderate Strands 08/19/22 16:00 Ur Microscopic Review INDICATED 08/19/22 16:00 Urine Culture Comments NOT INDICATED 08/19/22 16:00 Stl C. diff Tox B Gene NEGATIVE (NEGATIVE) 08/23/22 13:30 Urine Opiates Screen NEGATIVE (NEGATIVE) 08/19/22 16:00 Ur Oxycodone Screen NEGATIVE (NEGATIVE) 08/19/22 16:00 Urine Methadone Screen NEGATIVE (NEGATIVE) 08/19/22 16:00 Ur Propoxyphene Screen NEGATIVE (NEGATIVE) 08/19/22 16:00 Ur Barbiturates Screen NEGATIVE (NEGATIVE) 08/19/22 16:00 Ur Tricyclics Screen NEGATIVE (NEGATIVE) 08/19/22 16:00 Ur Phencyclidine Scrn NEGATIVE (NEGATIVE) 08/19/22 16:00 Ur Amphetamine Screen NEGATIVE (NEGATIVE) 08/19/22 16:00 U Methamphetamines Scrn NEGATIVE (NEGATIVE) 08/19/22 16:00 U Benzodiazepines Scrn NEGATIVE (NEGATIVE) 08/19/22 16:00 Urine Cocaine Screen NEGATIVE (NEGATIVE) 08/19/22 16:00 U Cannabinoids Screen POSITIVE (NEGATIVE) H 08/19/22 16:00 Ethyl Alcohol < 5.0 mg/dL 08/19/22 15:08 SARS-CoV-2 (PCR) NOT DETECTED 08/26/22 17:35
== END 2022-08-27 12:00 | DRG 922 ==
LOC: ED 14:56 → MS2 16:52
PROVIDERS: ADMIT Specialist; ATTEND Internal Medicine
DX: T68.XXXA Hypothermia, initial encounter (principal); E43 Unspecified severe protein-calorie malnutrition; R41.82 Altered mental status, unspecified; M62.82 Rhabdomyolysis; F03.90 Unspecified dementia, unspecified severity, without behavioral disturbance, psychotic disturbance, mood disturbance, and anxiety; E87.1 Hypo-osmolality and hyponatremia; Z68.1 Body mass index [BMI] 19.9 or less, adult; X31.XXXA Exposure to excessive natural cold, initial encounter; E87.6 Hypokalemia; I69.319 Unspecified symptoms and signs involving cognitive functions following cerebral infarction; I69.393 Ataxia following cerebral infarction; F10.10 Alcohol abuse, uncomplicated; R53.1 Weakness; Z20.822 Contact with and (suspected) exposure to COVID-19; F17.210 Nicotine dependence, cigarettes, uncomplicated; R41.3 Other amnesia; Z91.81 History of falling; F01.50 Vascular dementia, unspecified severity, without behavioral disturbance, psychotic disturbance, mood disturbance, and anxiety; D72.823 Leukemoid reaction; R05.3 Chronic cough; R32 Unspecified urinary incontinence; S90.511A Abrasion, right ankle, initial encounter; S80.812A Abrasion, left lower leg, initial encounter; S80.811A Abrasion, right lower leg, initial encounter; S30.810A Abrasion of lower back and pelvis, initial encounter; X58.XXXA Exposure to other specified factors, initial encounter
CPT/HCPCS: 36415; 70450; 71045; 72125; 80048; 80053; 80306; 81001; 82140; 82550; 83605; 83690; 83735; 84100; 85025; 85610; 87493; 87635; 93005; 96360; 96361; 97162; 97166; 97530; 97535; 99285; A9270; G0480; J1650; J3411; J7040; J7120; 80320; 81003; 87086